=== PATIENT | male | born 1985 | race Caucasian/White ===

== ENCOUNTER 2018-07-02 15:04 | Emergency (ER) | payer MEDICARE, MEDICAID ==
[~2018-07-02] VITALS: Ht 170.2 cm; Wt 62.6 kg
[~2018-07-02 15:04] MED LIST: CARB300C2 PO; CEPH-507 PO; CEPH500C PO; DICL50TA4 PO; GBPN300C PO; HYDR25CA5 PO; LAMO200T14 PO; METH-288; METH10TA3 PO; NF-VYVAN20 PO; PHEN32.4; PRM5C60 TOP; TRAZ150T42 PO
[2018-07-02] MEDS ORDERED: TETANUS,DIPTH,PERTUSS P/F (BOOSTRIX) 0.5 ML VIAL IM STA (15:33)
--- NOTE | 2018-07-02 15:43 | ED Upper Extremity ---
General Chief Complaint: Upper Extremity Stated Complaint: R THUMB SWELLING Nursing Triage Note: pt presents to ed with complaints of r pointer finger swelling/pain/redness x 2-3 days. Pt reports hx of abcesses. Nursing Sepsis Screen: No Definite Risk History of Present Illness Date Seen by Provider: Jul 02, 2018 Time Seen by Provider: 15:30 Initial Comments 32-year-old male presents for swelling and pain to his right thumb. He had a history of multiple abscesses in the past, they've been staph but not MRSA. He denies injuries to his right thumb. He is right-hand dominant. He is unsure of the last time he had a tetanus vaccine. Onset: other (2-3 days) Pain/Injury Location: right thumb Method of Injury: unknown Modifying Factors: Improves With Rest Allergies and Home Medications Allergies Coded Allergies: No Known Drug Allergies (Unverified , 07/28/10) Home Medications Gabapentin 300 Mg Cap, 300 MG PO HS, (Reported) Lamotrigine 200 Mg Tablet, 1 EACH PO HS, (Reported) Mupirocin Calcium 15 Gm Cream..g., 15 GM TP TID Prescribed by: CARIN CHAVEZ on 07/02/18 1602 Sulfamethoxazole/Trimethoprim 1 Each Tablet, 1 EACH PO BID Prescribed by: CARIN CHAVEZ on 07/02/18 1602 Patient Home Medication List Home Medication List Reviewed: Yes Review of Systems Constitutional: no symptoms reported, see HPI Skin: see HPI, lesions (right thumb dorsal aspect at IP joint) All Other Systems Reviewed Negative Unless Noted: Yes Past Geghgjn-Gjgoue-Bpiycq Hx Past Med/Social Hx: Reviewed Nursing Past Med/Soc Hx Patient Social History Alcohol Use: Denies Use Recreational Drug Use: No Smoking Status: Current Everyday Smoker Recent Foreign Travel: No Contact w/Someone Who Travel: No Recent Infectious Disease Expo: No Physical Abuse: No Sexual Abuse: No Mistreated: No Fear: No Seasonal Allergies Seasonal Allergies: No Past Medical History Surgeries: Yes (l hand) Respiratory: No Cardiac: No Neurological: Yes Seizure Disorder Genitourinary: No Gastrointestinal: No Musculoskeletal: No Endocrine: No Cancer: No Psychosocial: No Physical Exam Vital Signs Vital Signs - First Documented 07/02/18 15:11 Temp 97.9 Pulse 83 Resp 20 B/P (MAP) 122/69 (86) Pulse Ox 98 Capillary Refill : Less Than 3 Seconds Height, Weight, BMI Height: 5'7.00" Weight: 138lbs. oz. 62.082652pe; BMI Method:Stated General Appearance: WD/WN, no apparent distress Cardiovascular: normal peripheral pulses, regular rate, rhythm, no murmur Respiratory: chest non-tender, lungs clear, normal breath sounds Hand: no evidence of injury, Right, infection (IP joint, dorsal surface right thumb with small abscess. Min errythema, no active drainage. Trace fluctuance. LOM secondary to pain and swelling. ), limited ROM, soft tissue tenderness, swelling Neurologic/Psychiatric: no motor/sensory deficits, alert, normal mood/affect, oriented x 3 Skin: normal color, warm/dry Procedures/Interventions I&D : Site: Right thumb Blade Size: 11 I & D Procedure: betadine prep Progress Using sterile technique a small puncture was made over the abscess, trace purulent drainage was expressed. Culture obtained. The wound was irrigated with 200 ML's of sterile saline. Bulky sterile dressing applied. Patient tolerated procedure well. Progress/Results/Core Measures Results/Orders My Orders Orders - CARIN CHAVEZ Dipht,Pertuss(Acell),Tet Adult (Boostrix (07/02/18 15:33) Lidocaine 1% Inj 20 Ml (Xylocaine 1% Inj (07/02/18 15:45) Medications Given in ED Current Medications Medications Dose Ordered Sig/Alexander Route Start Time Stop Time Status Last Admin Dose Admin Lidocaine HCl 20 ml ONCE ONCE INJ 07/02/18 15:45 07/02/18 15:46 DC 07/02/18 15:50 20 ML Vital Signs/I&O 07/02/18 07/02/18 15:11 16:06 Temp 97.9 97.9 Pulse 83 83 Resp 20 20 B/P (MAP) 122/69 (86) 122/69 (86) Pulse Ox 98 98 Blood Pressure Mean: 86 Departure Impression Primary Impression: Abscess of right thumb Disposition: 01 HOME, SELF-CARE Condition: Improved Departure-Patient Inst. Decision time for Depature: 15:50 Referrals: NO,LOCAL PHYSICIAN (PCP/Family) Primary Care Physician Patient Instructions: Abscess Drainage, Percutaneous (DC) Add. Discharge Instructions: Keep wound clean and dry to right thumb. Irrigated with peroxide 3 times daily. Apply antibiotic ointment 3 times daily. Keep wound covered with a Band-Aid. Take antibiotic as prescribed. Wear gloves at all times on right hand while at work. Follow-up with your primary care provider if symptoms are not improving or worsen. You may take Tylenol 650 mg alternating with ibuprofen 600 mg every 4 hours for pain or fever. Return to emergency department for fever greater than 101, new problems or concerns. All discharge instructions reviewed with patient and/or family. Voiced understanding. Scripts Mupirocin Calcium (Mupirocin) 15 Gm Cream..g. 15 GM TP TID for 7 Days, #1 TUBE 0 Refills Prov: CARIN CHAVEZ 07/02/18 Sulfamethoxazole/Trimethoprim (Bactrim Ds Tablet) 1 Each Tablet 1 EACH PO BID, #14 TAB 0 Refills Prov: CARIN CHAVEZ 07/02/18 CARIN CHAVEZ Jul 02, 2018 15:43
[2018-07-02] MEDS ORDERED: LIDOCAINE 1% INJ 20 ML 20 ML VIAL INJ ONE (15:45)
[2018-07-02] MEDS ORDERED: SULF1TAB35 PO (16:02)
[2018-07-02] MEDS ORDERED: MUPI15CR11 TP (16:02)
[2018-07-02 16:06] VITALS: BP 122/69
== END 2018-07-02 16:06 | disposition home or self-care (01) ==
LOC: EDUNIT# 15:04 → ER 15:06
DX: L02.511 Cutaneous abscess of right hand (principal); G40.909 Epilepsy, unspecified, not intractable, without status epilepticus; F17.200 Nicotine dependence, unspecified, uncomplicated; Z86.19 Personal history of other infectious and parasitic diseases; Z23 Encounter for immunization
CPT/HCPCS: 87070; 87077; 87186; 87205; 90715

== ENCOUNTER 2019-10-06 17:36 | Emergency (ER) | payer MEDICARE, MEDICAID ==
[~2019-10-06] VITALS: Ht 172.7 cm; Wt 72.6 kg
[~2019-10-06 17:36] MED LIST changes: +MUPI15CR11 TP; -PHEN32.4; +PHEN32.44; +SULF1TAB35 PO
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
--- OUTSIDE RECORDS SUMMARY | 2019-10-06 17:42 | XMS REPORT ---
Author Author [employer]. Organization [facility] Address [address] [address] Care Team Providers Care Dinkey Dispatcher Name Role Phone Romero DEGROOT Unavailable [facility] Unavailable NO, LOCAL PHYSICIAN PCP Unavailable Migration, Doctor Unavailable Unavailable ZENON FINLEY S Unavailable Unavailable Migration, Doctor Unavailable Unavailable Migration, Doctor Unavailable Unavailable Migration, Doctor Unavailable Unavailable FE FINLEYNDA Unavailable FE FINLEYNDA Unavailable MANUELA GELLER Unavailable Unavailable MALIAFEZENON Unavailable FE FINLEYNDA Unavailable RAYMON Larios Unavailable MALIA, ZENON Unavailable Allergies Normalized Allergy Reported Date of Reaction(s) Care Provider Facility Allergy Type classification allergen Allergy Onset DA (14 Unclassified No Known Drug 07-28-2010 - no information LANCE MAGAÑA Not Available sources.) Allergies MD (35394) Medications Medication Ingredient Drug Dose Dates Status Sig Sig Care Class(es) (Normalized) (Original) Provid er no Cephalexin no 10-13-19 Complete no Cephalexin Jose oth information Monohydrate information 12 - d information Mo nohydrate y D (1 source.) (Cephalexin 04-01-20 (Cephalexin) Stebbi ) 500 Mg 13 500 Mg ns (no Capsule, 1 Capsule, 1 phone) Each Oral Each Oral Four Times Daily 10/13/11 Discontinued mupirocin Mupirocin RNA 300 07-02-19 Complete apply 15 g M upirocin Lissy 20 mg/ml Synthetase mg/mL 19 - d topically Calcium Acetylene Operator topical Inhibitor 07-09-19 three times (Mupirocin) Scott cream (1 Antibacteri 19 daily 15 Gm (no source.) al Cream..g. 15 phone) Gm TOPICAL Three Times A Day 7 Days 1 Tube 07/02/18 sulfamethox Sulfamethox Dihydrofola 07-02-19 Complete take 1 Sulfamethoxa Lissy azole 800 azole / te 19 d tablet by zole/Trimeth Ar board attendant mg / Trimethopri Reductase mouth twice oprim Scott trimethopri m Inhibitor daily, then (Bactrim Ds (no m 160 mg Antibacteri take 1 Tablet) 1 phone) oral tablet al, tablet by Each Tablet (1 source.) Sulfonamide mouth 1 Each ORAL Antimicrobi Twice A Day al 14 Tab 07/02/18 Problems Active Problems Problem Normalized Date of Normalized Normalized Provider Fac ility Classification Problem(s) Problem Problem Problem Sta tus Onset/Resoluti Duration on Immunizations Encounter for Episodic Active LISSY SCOTT Not Available and screening immunization (64921) for infectious disease (4 sources.) Other Encounter for Episodic Active LANCE MAGAÑA Not Available aftercare (1 therapeutic , (11172) source.) drug monitoring Epilepsy; Epilepsy, Chronic Active SHANNAN RUFINA , DO Not Leola ilable convulsions (6 unspecified, (64721) sources.) not intractable, without status epilepticus Translations: [ EPILEPSY UNSPEC W/O MENTION INTRACTABLE ] Other Long-term Episodic Active LANCE MAGAÑA Not Avai lable aftercare (4 (current) use , (99219) sources.) of other medications Other Pain in right Episodic Active LISSY SCOTT Not Avai lable connective finger(s) (76471) tissue disease (4 sources.) Other Personal Episodic Active LISSY SCOTT Not Available infections; history of (54912) including other parasitic (4 infectious and sources.) parasitic diseases Open wounds of Puncture wound Episodic Active MANUELA GALVI N Not Available extremities (4 without , DO (46959) sources.) foreign body of right hand, initial encounter Epilepsy; Unspecified Episodic Active LANCE MAGAÑA Not Av ailable convulsions (6 convulsions , (58198) sources.) Translations: [ OTHER CONVULSIONS] Past or Other Problems Problem Normalized Date of Normalized Normalized Provider Fac ility Classification Problem(s) Problem Problem Problem Sta tus Onset/Resoluti Duration on External cause Activity, food no information no information W VINOD SETH Not Available codes: preparation , DO (02881) Unspecified (4 and clean up sources.) Translations: [ OTHER EXTERNAL CAUSE STATUS] External cause Contact with no information no information MU SETH Not Available codes: knife, initial , DO (49252) Cut/solorzano (2 encounter sources.) External cause Kitchen of no information no information MANUELA SETH Not Available codes: Place single-family , DO (45371) of occurrence (private) (2 sources.) house as the place of occurrence of the external cause Procedures The data below is from unstructured sourcesNo known history of procedures.No procedure information available.No procedure i nformation available. No Known procedures No Known procedures No Known procedures No Known procedures No Known procedures No Known procedures No Known procedures No Known procedures No Known procedures No Known procedures No Known procedures No Known procedures Immunizations Normalized Immunization Date Notes Care Provider Facili ty Immunization tetanus toxoid, 07-02-2018 - no information no name Not Av ailable reduced diphtheria 07-02-2018 (99638) toxoid, and acellular pertussis vaccine, adsorbed Results Test Name Value Interpretation Reference Range Date Time Fa cility (Normalized) (Normalized) (Medline Reference) No panel information on 2018-12-02 Albumin 4.7 g/dL (N) 3.4 - 5.4 g/dL [facility] [Mass/Vol] [facility] (31552) Albumin/Globulin 1.8 {ratio} (N) 1 - 2.5 {ratio} Comm [facility] [Mass ratio] [facility] (00156) ALP [Catalytic 79 U/L (N) 44 - 147 U/L [facility] activity/Vol] [facility] (92021) ALT [Catalytic 16 U/L (N) 4 - 40 U/L [facility] activity/Vol] [facility] (16317) AST [Catalytic 17 U/L (N) 10 - 34 U/L [facility] activity/Vol] [facility] (23046) Basophils (Bld) 0.021 10*3/uL (N) 0 - 0.3 10*3/uL [facility] [#/Vol] [facility] (66937) Basophils/100 0.3 % (N) 0.5 - 1 % [facility] WBC (Bld) [facility] (80145) Bilirubin 0.5 mg/dL (N) 0.1 - 1.2 mg/dL [facility] [Mass/Vol] [facility] (02479) Calcium 9.6 mg/dL (N) 8.5 - 10.2 mg/dL [facility] [Mass/Vol] [facility] (71384) Chloride 105 mmol/L (N) 95 - 106 mmol/L [facility] [Moles/Vol] [facility] (51893) CO2 [Moles/Vol] 28 mmol/L (N) 23 - 29 mmol/L [facility] (46856) Creatinine 0.84 mg/dL (N) [facility] [Mass/Vol] [facility] (00380) Eosinophils 0.091 10*3/uL (N) 0.05 - 0.5 [facility] (Bld) [#/Vol] 10*3/uL [facility] (36707) Eosinophils/100 1.3 % (N) 1 - 4 % [facility] WBC (Bld) [facility] (57461) Erythrocyte 13.6 % (N) 11.6 - 14.6 % [facility] distribution [facility] (RBC) [facility] [Ratio] (90017) GFR/1.73 sq M 135 (N) 90 - 120 [facility] predicted among mL/min/{1.73_m2} mL/min/{1.73_m2} [facility] MDRD [facility] (S/P/Bld) [Vol (70552) rate/Area] GFR/1.73 sq 117 (N) 90 - 120 [facility] th M.predicted MDRD mL/min/{1.73_m2} mL/min/{1.73_m2} [facility] (S/P/Bld) [Vol [facility] rate/Area] (88741) Globulin (S) 2.6 g/dL (N) 2 - 3.5 g/dL [facility] ealth [Mass/Vol] [facility] (02453) Glucose 91 mg/dL (N) 60 - 125 mg/dL [facility] [Mass/Vol] [facility] (17241) HAV IgM IA Ql NON-REACTIVE (N) [facility] (62765) HBV core IgM IA NON-REACTIVE (N) [facility] (32507) HBV surface Ag NON-REACTIVE (N) [facility] IA Ql [facility] (53565) HCV Ab IA Ql NON-REACTIVE (N) [facility] (46838) HCV Ab 0.02 {ratio} (N) 0 - 3 {ratio} [facility] Signal/Cutoff IA [facility] [Rel units/Vol] [facility] (90456) Hematocrit (Bld) 50.1 % (H) 36.1 - 50.3 % [facility] [[facility]] [facility] (35723) Hemoglobin (Bld) 16.2 g/dL (N) 12.1 - 17.2 g/dL [facility] [Mass/Vol] [facility] (41183) Lot [id number] (no code) [facility] (89480) Lymphocytes 1.974 10*3/uL (N) 0.9 - 2.9 [facility] (Bld) [#/Vol] 10*3/uL [facility] (68203) Lymphocytes/100 28.2 % (N) 20 - 40 % [facility] WBC (Bld) [facility] (26427) MCH (RBC) 30.0 pg (N) 27 - 31 pg [facility] [Entitic mass] [facility] (09670) MCHC (RBC) 32.3 g/dL (N) 32 - 36 g/dL [facility] [Mass/Vol] [facility] (39965) MCV (RBC) 92.8 fL (N) 80 - 100 fL [facility] [Entitic vol] [facility] (92009) Monocytes (Bld) 0.728 10*3/uL (N) 0.3 - 0.9 [facility] Health [#/Vol] 10*3/uL [facility] (20632) Monocytes/100 10.4 % (N) 2 - 8 % [facility] WBC (Bld) [facility] (36047) Neutrophils 4.186 10*3/uL (N) 1.7 - 7 10*3/uL [facility] (Bld) [#/Vol] [facility] (74236) Neutrophils/100 59.8 % (N) 40 - 60 % [facility] WBC (Bld) [facility] (90012) Platelet mean 10.7 fL (N) 7.2 - 11.7 fL [facility] volume (Bld) [facility] [Entitic vol] [facility] (64751) Platelets (Bld) 240 10*3/uL (N) 150 - 450 [facility] [#/Vol] 10*3/uL [facility] (81153) Potassium 4.3 mmol/L (N) 3.7 - 5.2 mmol/L [facility] [Moles/Vol] [facility] (50724) Protein 7.3 g/dL (N) 6.4 - 8.3 g/dL [facility] [Mass/Vol] [facility] (05892) RBC (Bld) 5.40 10*6/uL (N) 4.2 - 6.1 [facility] [#/Vol] 10*6/uL [facility] (09492) Result 07/11/2019~neg (no code) [facility] (01075) Sodium 140 mmol/L (N) 135 - 145 mmol/L [facility] [Moles/Vol] [facility] (04791) Urea nitrogen 11 mg/dL (N) 7 - 20 mg/dL [facility] [Mass/Vol] [facility] (97573) Urea NOT APPLICABLE (no code) [facility] nitrogen/Creatin [facility] [Mass ratio] [facility] (12535) WBC (Bld) 7.0 10*3/uL (N) 3.5 - 10.5 [facility] [#/Vol] 10*3/uL [facility] (03762) No panel information on 2018-11-27 6-Monoacetylmorp no information (no code) Community a lt hunter (6-JUAN DAVID) Ql [facility] (U) [facility] (01069) Amphetamine (U) no information (no code) [facility] [Mass/Vol] [facility] (43654) Amphetamines Ql no information (no code) [facility] (U) [facility] (60632) Benzodiazepines no information (no code) [facility] Ql (U) [facility] (20417) Benzoylecgonine no information (no code) [facility] Ql (U) [facility] (72892) Buprenorphine Ql no information (no code) [facility] (U) [facility] (43142) COMMENT no information (no code) [facility] (77826) Creatinine (U) 114.5 mg/dL (no code) [facility] [Mass/Vol] [facility] (06694) Ethanol Ql (U) no information (no code) [facility] (49250) medMATCH 6 CONSISTENT (no code) [facility] Acetylmorphine [facility] (06816) medMATCH Alcohol CONSISTENT (no code) [facility] Metab [facility] (17238) medMATCH CONSISTENT (no code) [facility] Amphetamine [facility] (15987) medMATCH CONSISTENT (no code) [facility] Amphetamines [facility] (95291) medMATCH CONSISTENT (no code) [facility] Benzodiazepines [facility] (21605) medMATCH CONSISTENT (no code) [facility] Buprenorphine [facility] (82444) medMATCH Cocaine CONSISTENT (no code) [facility] Metab [facility] (92264) medMATCH CONSISTENT (no code) [facility] Marijuana Metab [facility] (71182) medMATCH MDMA CONSISTENT (no code) [facility] (71072) medMATCH CONSISTENT (no code) [facility] Methamphetamine [facility] (56025) medMATCH Opiates CONSISTENT (no code) [facility] (02252[facility] medMATCH CONSISTENT (no code) [facility] Oxycodone [facility] (74576) Methamphetamine no information (no code) [facility] (U) [Mass/Vol] [facility] (83289) Methylenedioxyme no information (no code) [facility] thamphetamine [facility] ([facility] (40037) Opiates Ql (U) no information (no code) [facility] (71643) Oxidants Ql (U) no information (no code) [facility] (08377) Oxycodone Ql (U) no information (no code) [facility] (78844) pH (U) 7.11 [pH] (no code) 4.6 - 8 [pH] [facility] (10508) Tetrahydrocannab no information (no code) [facility] inol Ql (U) [facility] (14183) No panel information on 2018-11-12 6-Monoacetylmorp no information (no code) [facility] hunter (6-JUAN DAVID) [facility] (U) [facility] (26296) Amphetamine (U) no information (no code) [facility] [Mass/Vol] [facility] (83303) Amphetamines Ql no information (no code) [facility] (U) [facility] (72389) Benzodiazepines no information (no code) [facility] Ql (U) [facility] (36816) Benzoylecgonine no information (no code) [facility] Ql (U) [facility] (34425) Buprenorphine Ql no information (no code) [facility] (U) [facility] (67807) COMMENT no information (no code) [facility] (99010) COMMENT no information (no code) [facility] (25947) Creatinine (U) 227.4 mg/dL (no code) [facility] [Mass/Vol] [facility] (03508) Ethanol Ql (U) no information (no code) [facility] (31313) medMATCH 6 CONSISTENT (no code) [facility] Acetylmorphine [facility] (76914) medMATCH Alcohol CONSISTENT (no code) Community a [facility]th Metab [facility] (21322) medMATCH CONSISTENT (no code) [facility] Amphetamine [facility] (17109) medMATCH CONSISTENT (no code) [facility] Amphetamines [facility] (20111) medMATCH CONSISTENT (no code) [facility] Benzodiazepines [facility] (00075) medMATCH CONSISTENT (no code) [facility] Buprenorphine [facility] (23915) medMATCH Cocaine CONSISTENT (no code) [facility] Metab [facility] (47333) medMATCH CONSISTENT (no code) [facility] Marijuana Metab [facility] (78814) medMATCH MDMA CONSISTENT (no code) [facility] (00652) medMATCH CONSISTENT (no code) [facility] Methamphetamine [facility] (07766) medMATCH Opiates CONSISTENT (no code) [facility] (48571) medMATCH CONSISTENT (no code) [facility] Oxycodone [facility] (00477) Methamphetamine no information (no code) [facility] (U) [Mass/Vol] [facility] (21625) Methylenedioxyme no information (no code) [facility] thamphetamine Ql [facility] (U) [facility] (60252) Opiates Ql (U) no information (no code) [facility] (78861) Oxidants Ql (U) no information (no code) [facility] (26138) Oxycodone Ql (U) no information (no code) [facility] (54322) pH (U) 5.96 [pH] (no code) 4.6 - 8 [pH] [facility] (25609) Tetrahydrocannab no information (no code) [facility] inol Ql (U) [facility] (57976) No panel information on 2018-10-16 6 Acetylmorphine no information (no code) [facility] (54632) Alcohol no information (no code) [facility] Metabolites [facility] (60592) Amphetamine no information (no code) [facility] (38458) Amphetamines Ql no information (no code) [facility] (U) [facility] (63775) Benzodiazepines no information (no code) [facility] Ql (U) [facility] (85184) Benzoylecgonine no information (no code) [facility] Ql (U) [facility] (80065) Buprenorphine no information (no code) [facility] (18604) COMMENT no information (no code) [facility] (28548) Creatinine (U) 115.7 mg/dL (no code) [facility] [Mass/Vol] [facility] (53832) MDMA no information (no code) [facility] (82561) medMATCH 6 CONSISTENT (no code) [facility] Acetylmorphine [facility] (14847) medMATCH Alcohol CONSISTENT (no code) [facility] Metab [facility] (24798) medMATCH CONSISTENT (no code) [facility] Amphetamine [facility] (08723) medMATCH CONSISTENT (no code) [facility] Amphetamines [facility] (39357) medMATCH CONSISTENT (no code) [facility] Benzodiazepines [facility] (84906) medMATCH CONSISTENT (no code) [facility] Buprenorphine [facility] (05965) medMATCH Cocaine CONSISTENT (no code) [facility] Metab [facility] (07152) medMATCH CONSISTENT (no code) [facility] Marijuana Metab [facility] (40086) medMATCH MDMA CONSISTENT (no code) [facility] (30801) medMATCH CONSISTENT (no code) [facility] Methamphetamine [facility] (13540) medMATCH Opiates CONSISTENT (no code) [facility] (02032) medMATCH CONSISTENT (no code) [facility] Oxycodone [facility] (61003) Methamphetamine no information (no code) [facility] (U) [Mass/Vol] [facility] (87555) Opiates Ql (U) no information (no code) [facility] (41988) Oxidants Ql (U) no information (no code) [facility] (40969) Oxycodone Ql (U) no information (no code) [facility] (87495) pH (U) 6.93 [pH] (no code) 4.6 - 8 [pH] [facility] (71735) Tetrahydrocannab no information (no code) [facility] inol Ql (U) [facility] (50809) Vital Signs The data below is from unstructured sources Vital Response Date/Time Temperature (Fahrenheit) 98.0 degree s F (97.6 - 99.5) 05/19/2015 2:06am Temperature (Calculated Celsius) 36. 08414 degrees C (36.4 - 37.5) 05/19/2015 2:06am Pulse Rate (adult) 83 bpm (60 - 90) 05/19/2015 2:06am Respiratory Rate 20 bpm (12 - 24) 05/19/2015 2:06am O2 Sat by Pulse Oximetry 96 % (88 - 100) 05/19/2015 2:06am Blood Pressure 127/76 mm Hg 05/19/2015 2:06am Blood Pressure Mean 93 mm Hg 05/19/2015 2:06am Pain Pain Intensity 6 2014 2:06am Height (Feet) 5 feet 02/2015 2:06am Height (Inches) 7 inches 05/19/2015 2:06am Height (Calculated Centimeters) 170. 766800 cm 05/19/2015 2:06am Weight (Pounds) 142 pounds 05/19/2015 2:06am Weight (Calculated Kilograms) 64.410 117 kilograms 05/19/2015 2:06am Calculated BMI 22.24 02/2015 2:06am Vital Response Date/Time Temperature (Fahrenheit) 97.9 degree s F (97.6 - 99.5) 07/02/2018 4:06pm Temperature (Calculated Celsius) 36. 97609 degrees C (36.4 - 37.5) 07/02/2018 4:06pm Temperature Source Tympanic 07/02/2018 4:06pm Pulse Rate (adult) 83 bpm (60 - 90) 07/02/2018 4:06pm Respiratory Rate 20 bpm (12 - 24) 07/02/2018 4:06pm O2 Sat by Pulse Oximetry 98 % (88 - 100) 07/02/2018 4:06pm Blood Pressure 122/69 mm Hg 07/02/2018 4:06pm Blood Pressure Mean 86 mm Hg (65 - 110) 07/02/2018 4:06pm Pain Numeric Pain Scale 7 4:06pm Height (Feet) 5 feet 3:11pm Height (Inches) 7.00 inches 07/02/2018 3:11pm Height (Calculated Centimeters) 170. 816635 cm 07/02/2018 3:11pm Height Method Stated 3:11pm Weight (Pounds) 138 pounds 07/02/2018 3:11pm Weight (Calculated Grams) 56444.75 gm 07/02/2018 3:11pm Weight (Calculated Kilograms) 62.595 748 kilograms 07/02/2018 3:11pm Weight Method Stated 3:11pm Capillary Refill Capillary Refill Less Than 3 Seconds 07/02/2018 3:11pm Height 5 ft 7 in 019 3:11pm Weight 138 lb 07/02/2018 3:11pm Body Mass Index 21.6 kg/m^2 07/02/2018 3:11pm Interventions No Information Plan of Treatment The data below is from unstructured sources Discharge Date 05/19/15 2:45am Disposition 01 HOME, SELF-CARE Condition at Discharge Stable Instructions/Education Provided Punc ture Wound (ED) Prescriptions See Medication Section Referrals Romero DEGROOT DO - Primary C are Physician Discharge Date 07/02/18 4:06pm Disposition 01 HOME, SELF-CARE Condition at Discharge Improved Instructions/Education Provided Absc ess Drainage, Percutaneous (DC) Prescriptions See Medication Section Referrals NO,LOCAL PHYSICIAN Order Date: Primary Care Physician Additional Instructions/Education Ke ep wound clean and dry to right thumb. Irrigated with peroxide 3 times daily. Apply antibiotic ointment 3 times daily. Keep wound covered with a Band-Aid. Take antibiotic as prescribed. Wear gloves at all times on right hand while at work. Follow-up with your primary care provider if symptoms are not improving or worsen. You may take Tylenol 650 mg alternating with ibuprofen 600 mg every 4 hours for pain or fever. Return to emergency department for fever greater than 101???, new problems or concerns. All discharge instructions reviewed with patient and/or family. Voiced understanding. Goals No Information Social History The data below is from unstructured sources History Response Recorde d Date/Time Alcohol Use Rarely Uses 04/01/13 12:55pm Recreational Drug Use N 04/01/13 12:55pm Functional Status The data below is from unstructured sourcesNo functional status results.No functional status information available.No functional status information available. Mental Status No Information Encounters Encounter Normalized Encounter Encounter Diagnosis Care Provi carla Organization Date Type 07-02-2018 Emergency department no information LISSY marrufo no organization name - patient visit (no phone ) 07-02-2018 11-05-2013 Emergency department no information no name (no vickie ne) no organization name - patient visit (no phone) 11-05-2013 06-03-2019 Patient encounter no information no name (no phone) no organization name procedure (no phone) 05-27-2019 Patient encounter no information no name (no phone) no organization name procedure (no phone) 05-13-2019 Patient encounter no information no name (no phone) no organization name procedure (no phone) 05-06-2019 Patient encounter no information no name (no phone) no organization name procedure (no phone) 04-01-2019 Patient encounter no information no name (no phone) no organization name procedure (no phone) 02-26-2019 Patient encounter no information no name (no phone) no organization name procedure (no phone) 01-30-2019 Patient encounter no information no name (no phone) no organization name procedure (no phone) 01-22-2019 Patient encounter no information no name (no phone) no organization name procedure (no phone) 01-13-2019 Patient encounter no information no name (no phone) no organization name procedure (no phone) 01-01-2019 Patient encounter no information no name (no phone) no organization name procedure (no phone) 12-23-2018 Patient encounter no information no name (no phone) no organization name procedure (no phone) 12-18-2018 Patient encounter no information no name (no phone) no organization name procedure (no phone) 12-10-2018 Patient encounter no information no name (no phone) no organization name procedure (no phone) 12-04-2018 Patient encounter no information no name (no phone) no organization name procedure (no phone) 12-03-2018 Patient encounter no information no name (no phone) no organization name procedure (no phone) 12-02-2018 Patient encounter no information no name (no phone) no organization name procedure (no phone) 12-02-2018 Patient encounter no information no name (no phone) no organization name procedure (no phone) 11-27-2018 Patient encounter no information no name (no phone) no organization name procedure (no phone) 11-26-2018 Patient encounter no information no name (no phone) no organization name procedure (no phone) 11-19-2018 Patient encounter no information no name (no phone) no organization name procedure (no phone) 11-12-2018 Patient encounter no information no name (no phone) no organization name procedure (no phone) 10-31-2018 Patient encounter no information no name (no phone) no organization name procedure (no phone) 10-24-2018 Patient encounter no information no name (no phone) no organization name procedure (no phone) 10-16-2018 Patient encounter no information no name (no phone) no organization name procedure (no phone) 10-09-2018 Patient encounter no information no name (no phone) no organization name procedure (no phone) 10-02-2018 Patient encounter no information no name (no phone) no organization name procedure (no phone) 09-30-2018 Patient encounter no information no name (no phone) no organization name procedure (no phone) 09-26-2018 Patient encounter no information no name (no phone) no organization name procedure (no phone) 07-02-2018 Patient encounter no information no name (no phone) no organization name procedure (no phone) 03-24-2015 Patient encounter no information no name (no phone) no organization name procedure (no phone) 02-06-2014 Patient encounter no information no name (no phone) no organization name procedure (no phone) 10-28-2013 Patient encounter no information no name (no phone) no organization name procedure (no phone) 08-01-2013 Patient encounter no information no name (no phone) no organization name procedure (no phone) 06-27-2013 Patient encounter no information no name (no phone) no organization name procedure (no phone) Patient encounter no information no name (no phone) no organ ization name procedure (no phone) Medical Equipment No Information Payers The data below is from unstructured sources Payer Name Policy Number Subscriber Name Relationship Medicaid [place] [id number] Uriel Dodge Jr 01 Self / Same As Patient s Medicare [id number] Uriel Dodge Jr Self / Same As Patient History general Narrative - Reported Note Type Note Facility History general Narrative - Reported Type Medical Hypokalemia History Medical Contact dermatitis and othe r eczema, due to unspecified cause History Medical Mood disorder History Medical Anxiety disorder, unspecifi ed History Medical Cervicalgia History Medical hx epilepsy in childhood, l ast seizure 2009 (12/18/2018) History Surgical realignment of joint History Hospitaliz surgery ation [facility] ([id number]) Advance Directives Directive Response Recor ded Date/Time Advance Directives No 2:06am Health Care Power of Colorist Dyer No 05/19/15 2:06am Organ Donor No 05/19/15 2:06am Resuscitation Status Full Code 05/19/15 2:06am Directive Response Recor ded Date Advance Directives N 12:55pm Health Care Power of Colorist Dyer N 04/01/13 12:55pm Organ Donor N 04/01/13 1 2:55pm Directive Response Recor ded Date/Time Advance Directives No 3:11pm Health Care Power of Colorist Dyer No 07/02/18 3:11pm Organ Donor No 07/02/18 3:11pm Resuscitation Status Full Code 07/02/18 3:11pm Discharge Instructions No hospital discharge instructions.No hospital discharge instruction information available. Chief Complaint and Reason for Visit Chief Complaint Upper Extremity Reason for Visit Abscess of right th umb Additional Source Comments This clinical document has been generated using [employer] software that has been certified by the Office of the National Coordinator for Health Information Technology (ONC 15.99.04.3023.[id number]) and the National Committee for Tafe Teacher (NCQA, as an eMeasure certified technology). FOR RECORDS PERTAINING TO PATIENTS WHO ARE OR HAVE BEEN ENROLLED IN A CHEMICAL D EPENDENCY/SUBSTANCE ABUSE PROGRAM, SOME INFORMATION MAY BE OMITTED. This clinica l summary was aggregated from multiple sources. Caution should be exercised in using it in the provision of clinical care. This summary normalizes information from multiple sources, and as a consequence, information in this document may ma terially change the coding, format and clinical context of patient data. In jolie tion, data may be omitted in some cases. CLINICAL DECISIONS SHOULD BE BASED ON T HE PRIMARY CLINICAL RECORDS. [employer] provides no warranty or guara ntee of the accuracy or completeness of information in this document.The followi ng information is based on time limited clinical information UNRECOGNIZED CONTENT PROVIDED BELOW FOR UNRECOGNIZED SECTION REASON FOR VISIT [id number] UNRECOGNIZED CONTENT PROVIDED BELOW FOR UNRECOGNIZED SECTION MEDICAL (GENERAL) HISTORY Type Description Date Surgical History realignment of joint Hospitalization History surgery Type Description Date Medical History Hypokalemia Medical History Contact dermatitis a nd other eczema, due to unspecified cause Medical History Mood disorder Medical History Anxiety disorder, un specified Medical History Cervicalgia Medical History hx epilepsy in child [place], last seizure 2009 (12/18/2018) Surgical History realignment of joint Hospitalization History surgery
--- NOTE | 2019-10-06 18:38 | ED Lower Extremity ---
General Chief Complaint: Lower Extremity Stated Complaint: L KNEE PAIN Nursing Triage Note: PT AMBULATE TO ROOM 07 WITH C/O LEFT KNEE PAIN. PT REPORTS PAIN X1 YEAR THAT HAS WORSENED IN THE LAST 2 DAYS. PT STATES HE THINKS IT IS A "FX OR OSTEOARTHRITIS". PT DENIES HX OF TRAUMA TO LEFT KNEE. PT REPORTS TAKING IBUPROFEN AT HOME WITH LIMITED RELIEF. Nursing Sepsis Screen: No Definite Risk Source: patient Exam Limitations: no limitations History of Present Illness Date Seen by Provider: Oct 06, 2019 Time Seen by Provider: 18:25 Initial Comments Here with report of left knee pain that has been worse over the past few days. Has been bothering him for over a year now. Concerned about a bone chip for infection. Has history of multiple abscesses. Denies recent injury. Able to walk okay. No recent seizures. Just completed a course of antibiotic for sebaceous cyst on his head cephalexin 4 times a day 10 days. Denies fever. Denies redness or swelling. Pain is distal lateral left knee. Onset: other (2 days) Severity: mild, moderate Pain/Injury Location: left knee Method of Injury: unknown Modifying Factors: Worse With Movement; Improves With Rest Allergies and Home Medications Allergies Coded Allergies: No Known Drug Allergies (Unverified , 07/28/10) Home Medications Gabapentin 300 Mg Cap, 300 MG PO HS, (Reported) Lamotrigine 200 Mg Tablet, 1 EACH PO HS, (Reported) Mupirocin Calcium 15 Gm Cream..g., 15 GM TP TID Prescribed by: CARIN CHAVEZ on 07/02/18 160 Sulfamethoxazole/Trimethoprim 1 Each Tablet, 1 EACH PO BID Prescribed by: CARIN CHAVEZ on 07/02/18 1602 Patient Home Medication List Home Medication List Reviewed: Yes Review of Systems Constitutional: No chills, No fever Respiratory: no symptoms reported Cardiovascular: no symptoms reported Musculoskeletal: joint pain; No joint swelling Skin: see HPI; No change in color, No lesions Psychiatric/Neurological: No Symptoms Reported Past Lzlvedd-Fkrmyv-Abpfht Hx Past Med/Social Hx: Reviewed Nursing Past Med/Soc Hx Patient Social History Alcohol Use: Rarely Uses Recreational Drug Use: No Smoking Status: Current Everyday Smoker Type Used: Cigarettes 2nd Hand Smoke Exposure: Yes Recent Foreign Travel: No Contact w/Someone Who Travel: No Recent Infectious Disease Expo: No Physical Abuse: No Sexual Abuse: No Mistreated: No Fear: No Seasonal Allergies Seasonal Allergies: No Past Medical History Surgeries: Yes (l hand) Respiratory: No Cardiac: No Neurological: Yes Seizure Disorder Genitourinary: No Gastrointestinal: No Musculoskeletal: No Endocrine: No Cancer: No Psychosocial: No Family Medical History Reviewed Nursing Family Hx Physical Exam Vital Signs Vital Signs - First Documented 10/06/19 17:59 Temp 37.7 Pulse 76 Resp 18 B/P (MAP) 140/83 (102) O2 Delivery Room Air Capillary Refill : Less Than 3 Seconds Height, Weight, BMI Height: 5'7.00" Weight: 138lbs. oz. 62.018101py; 24.00 BMI Method:Stated General Appearance: WD/WN, no apparent distress Cardiovascular: regular rate, rhythm, no murmur Respiratory: lungs clear, normal breath sounds Knees: right knee non-tender; bilateral knee normal range of motion; left knee other (no obvious swelling, redness or dysfunction. Negative drawer and negative laxity medial and lateral.) Neurologic/Psychiatric: alert, oriented x 3 Skin: normal color, warm/dry Progress/Results/Core Measures Results/Orders My Orders Orders - PATRICA ISLAS MD Knee, Left, 3 Views (10/06/19 18:32) Vital Signs/I&O 10/06/19 17:59 Temp 37.7 Pulse 76 Resp 18 B/P (MAP) 140/83 (102) O2 Delivery Room Air Blood Pressure Mean: 102 Progress Progress Note : Progress Note Seen and evaluated. X-ray left knee ordered. No acute findings. I did discuss with the patient regarding his blood pressure because it concerns him. His blood pressure is 140 over 80s or less. He will follow-up with his doctor regarding that. States his blood pressure are normally normal. Discharge home with return precautions. Patient verbalize understanding instructions and agreement with plan. Diagnostic Imaging Diagonstic Imaging: Xray Plain Films/CT/US/NM/MRI: knee Comments No acute findings Departure Impression Primary Impression: Left lateral knee pain Disposition: HOME, SELF-CARE Condition: Stable Departure-Patient Inst. Decision time for Depature: 18:39 Referrals: [facility] (PCP/Family) Primary Care Physician Patient Instructions: Knee Pain (DC) Add. Discharge Instructions: All discharge instructions reviewed with patient and/or family. Voiced understanding. Follow-up with your doctor for recheck and further evaluation and for referral to orthopedics to evaluate your knee. You can have this done at the clinic. You can schedule with the orthopedic nurse practitioner at the clinic for evaluation as well. You may take ibuprofen and/or Tylenol/acetaminophen as needed for pain per package directions if tolerated. You may use ice packs over area of concern 20 minutes per hour to reduce swelling and pain. Return for worse pain, swelling, fever, redness or other concerns as needed. Copy Copies To 1: MICHELLE ROMERO TIMOTHY D MD Oct 06, 2019 18:38
[2019-10-06 18:55] VITALS: BP 131/72
--- NOTE | 2019-10-06 18:55 | Diagnostic Imaging Report ---
CLINICAL INDICATION: Patient with left knee pain. Patient reports pain x1 year that has worsened in the last 2 days. Patient thinks it is a fracture osteoarthritis. Patient denies history of trauma to left knee. EXAM: X-ray of the left knee, 3 views. COMPARISON: None. FINDINGS: There is no acute fracture or dislocation. There is no knee effusion. There is no significant bony abnormality. IMPRESSION: Unremarkable x-ray of the left knee. Dictated by: Dictated on workstation # [id number]
== END 2019-10-06 18:55 | disposition home or self-care (01) ==
LOC: EDUNIT# 17:36 → ER 17:38
DX: M25.562 Pain in left knee (principal); G40.909 Epilepsy, unspecified, not intractable, without status epilepticus; F17.210 Nicotine dependence, cigarettes, uncomplicated
CPT/HCPCS: 73562

== ENCOUNTER 2019-12-20 14:40 | Emergency (ER) | payer MEDICARE, MEDICAID ==
[~2019-12-20] VITALS: Ht 170.2 cm; Wt 73.9 kg
--- OUTSIDE RECORDS SUMMARY | 2019-12-20 14:45 | XMS REPORT ---
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[employer] [facility] [employer] [facility] [employer] Address [address] [address] Care Team Providers Care Frame Assembler Name Role Phone Romero DEGROOT Unavailable [facility] Unavailable NO, LOCAL PHYSICIAN PCP Unavailable Migration, Doctor Unavailable Unavailable JESS FINLEYA S Unavailable Unavailable Migration, Doctor Unavailable Unavailable Migration, Doctor Unavailable Unavailable Migration, Doctor Unavailable Unavailable MALIA, ZENON Unavailable FE FINLEYNDA Unavailable MANUELA GELLER Unavailable Unavailable MALIA, ZENON Unavailable MALIA, ZENON Unavailable RAYMON Larios Unavailable MALIA, ZENON Unavailable MARK PHILLIPS, REENA Quan Unavailable Unavailable JANEL PHILLIPS, PATRICA Kendrick Unavailable Unavailable GÓMZE PHILLIPS, LANCE Weiner Unavailable Unavailable MANUELA SETH DO Unavailable Unavailable SCOTT HAND EXPANSION ENVELOPE MAKER, CARIN L Unavailable Unavailable Unavailable Unavailable Unavailable Unavailable Allergies The data below is from unstructured sources Allergen Type Severity Reaction Last Updated No Known Drug Allergies 07/28/10 No Information Encounters Encounter Date Encounter Type Encounter Diagnosis Care Provider Facility Start: Patient encounter MANUELA Kadeem [facility] 11-25-2019 procedure Center [facility] Start: Patient encounter MANUELA Quan [facility] 11-17-2019 procedure Center [facility] Start: Patient encounter MANUELA Quan [facility] 10-07-2019 procedure Center [facility] Start: Emergency department REENA Blacki 10-06-2019 patient visit [facility] End: 10-06-2019 Start: Patient encounter PATRICA ISLAS MD [facility] [address] 10-06-2019 procedure [facility] Start: Patient encounter MANUELA GELLER [facility] 06-03-2019 procedure [facility] ([id number]) Start: Patient encounter MANUELA GELLER [facility] [place] 05-27-2019 procedure [facility] ([id number]) Start: Patient encounter ZENON FINLEY [facility] 05-13-2019 procedure [facility] ([id number]) Start: Patient encounter ZENON MALIA [facility] 05-06-2019 procedure [facility] ([id number]) Start: Patient encounter ZENON MALIA [facility] [place] 04-01-2019 procedure [facility] ([id number]) Start: Patient encounter ZENON MALIA [facility] [place] 02-26-2019 procedure [facility] ([id number]) Start: Patient encounter ZENON MALIA [facility] [place] 01-30-2019 procedure [facility] ([id number]) Start: Patient encounter ZENON MALIA [facility] [place] 01-22-2019 procedure [facility] ([id number]) Start: Patient encounter ZENON MALIA [facility] [place] 01-13-2019 procedure [facility] ([id number]) Start: Patient encounter ZENON MALIA [facility] [place] 01-01-2019 procedure [facility] ([id number]) Start: Patient encounter ZENON MALIA [facility] 12-23-2018 procedure [facility] ([id number]) Start: Patient encounter ZENON MALIA [facility] 12-18-2018 procedure [facility] ([id number]) Start: Patient encounter ZENON MALIA [facility] [place] 12-10-2018 procedure [facility] ([id number]) Start: Patient encounter ZENON MALIA [facility] [place] 12-04-2018 procedure [facility] ([id number]) Start: Patient encounter ZENON MALIA [facility] 12-03-2018 procedure [facility] (46890) Start: [facility] encounter NA [facility] 12-02-2018 [facility] ([id number]) Start: Patient encounter NA NA [facility] 12-02-2018 procedure [facility] ([id number]) Start: Patient encounter ZENON MALIA [facility] 11-27-2018 procedure [facility] ([id number]) Start: Patient encounter ZENON MALIA [facility] 11-26-2018 procedure [facility] (31525) Start: Patient encounter ZENON MALIA [facility] 11-19-2018 procedure [facility] ([id number]) Start: Patient encounter NA NA [facility] 11-12-2018 procedure [facility] (08986) Start: Patient encounter ZENON MALIA [facility] 10-31-2018 procedure [facility] ([id number]) Start: Patient encounter ZENON MALIA [facility] 10-24-2018 procedure [facility] (11612) Start: Patient encounter ZENON MALIA [facility] 10-16-2018 procedure [facility] ([id number]) Start: Patient encounter ZENON MALIA [facility] [place] 10-09-2018 procedure [facility] (77615) Start: Patient encounter ZENON MALIA [facility]2018 [facility] ([id number]) Start: Patient encounter ZENON MALIA [facility] [place] 09-30-2018 procedure [facility] (10165) [facility]: [facility] (10598) Start: Emergency department CARIN CHAVEZ Not Avai lable ([id number]) 07-02-2018 patient visit End: 07-02-2018 Start: Patient encounter CARIN CHAVEZ Not Availab le ([id number]) 07-02-2018 procedure Start: Emergency department CARIN VALLEJO [facility] [address] 07-02-2018 patient visit [facility] End: 07-02-2018 Start: Emergency department MANUELA SETH DO [facility] 05-18-2015 patient visit [facility] End: 05-18-2015 Start: Patient encounter LANCE MAGAÑA MD Not Avail able ([id number]) 03-24-2015 procedure Start: Patient encounter LANCE MAGAÑA MD [facility] 03-24-2015 procedure [facility] Start: Patient encounter LANCE MAGAÑA MD Not Avail able ([id number]) 02-06-2014 procedure Start: Emergency department SHANNAN ALMARAZ DO Not Avai lable ([id number]) 11-05-2013 patient visit End: 11-05-2013 Start: Patient encounter LANCE MAGAÑA MD Not Avail able ([id number]) 10-28-2013 procedure Start: Patient encounter LANCE MAGAÑA MD Not Avail able ([id number]) 08-01-2013 procedure Start: Patient encounter LANCE MAGAÑA MD Not Avail able ([id number]) 06-27-2013 procedure Patient encounter NA NA Not Available (0000 0) procedure Medical Equipment No Information Goals No Information Immunizations Immunizatio Immunization Notes Care Provider Facility n Date 07-02-2018 tetanus toxoid, NA NA Not Available ([id number]) reduced diphtheria toxoid, and acellular pertussis vaccine, adsorbed Interventions No Information Medications Medication Drug Dates Sig Sig (Original) Class(es) (Normalized) Cephalexin Monohydrate Start: Cephalexin Mon ohydrate (Cephalexin) 500 (Cephalexin) 500 Mg 10-13-2011 Mg Capsule, 1 Eac h Oral Four Times Daily Capsule, 1 Each Oral 10/13/11 Discontinued (1 source) End: 04-01-2013 mupirocin 20 mg/ml RNA Start: apply 15 g Mupiroc in Calcium (Mupirocin) 15 Gm topical cream Synthetase 07-02-2018 topically three Cream..g . 15 Gm TOPICAL Three Times A (1 source) Inhibitor times daily Day 7 Days 1 Tube 07/02/18 Antibacter End: ial 07-09-2018 sulfamethoxazole 800 mg Dihydrofol Start: Sulfam ethoxazole/Trimethoprim (Bactrim / trimethoprim 160 mg ate 07-02-2018 Ds Table t) 1 Each Tablet 1 Each ORAL oral tablet Reductase Twice A Day 14 Tab 07/02/18 (1 source) Inhibitor Antibacter ial, Sulfonamid e Antimicrob ial Payers The data below is from unstructured sources Payer Name Policy Number Subscriber Name Relationship Medicaid [place] [id number] Uriel Dodge Jr Self / Same As Patient Wps Medicare [id number] Uriel Dodge Jr Self / Same As Patient Plan of Treatment The data below is [...] reviewed with patient and/or family. Voiced understanding. Problems Active Problems Problem Problem Date Last Documented Episodic/Chr Provider Classificati Recorded Date on on E Codes: Contact with knife, initial Episodic MANUELA Cut/pierceb encounter DORINDA DO (4 sources) E Codes: Kitchen of single-family (private) Episodic MANUELA Place of house as the place of occurrence of DORINDA DO occurrence the external cause (4 sources) E Codes: Activity, food preparation and Episodic MANUELA Unspecified clean up ; Translations: [OTHER GAL GUS DO (8 sources) EXTERNAL CAUSE STATUS] Epilepsy; Epilepsy, unspecified, not 10-28-2019 Chronic SHANNAN RUFINA DO convulsions intractable, without status (10 sources) epilepticus ; Translations: [Epilepsy, unspecified, without mention of intractable epilepsy] Epilepsy; Unspecified convulsions ; Episodic DE VENDRA convulsions Translations: [Other convulsions] Augustus CORTEZ MD (8 sources) Immunization Encounter for immunization Episodic A MY SCOTT s and HAND EXPANSION ENVELOPE MAKER screening for infectious disease (6 sources) Other Pain in right finger(s) Episodic CARIN SCOTT connective HAND EXPANSION ENVELOPE MAKER tissue disease (6 sources) Other Personal history of other Episodic AM Y SCOTT infections; infectious and parasitic diseases A LICENSED STAFF MFT including parasitic (6 sources) Other Pain in left knee 10-28-2019 Episodic PATRICA non-traumati JANEL lackey joint disorders (4 sources) Unclassified LOCAL NO (2 sources) Past or Other Problems Problem Problem Date Last Documented Episodic/Chr Provider Classificati Recorded Date onic on Other Long-term (current) use of other Episodic LANCE aftercare medications GÓMEZ PHILLIPS (4 sources) Other Encounter for therapeutic drug Episodic LANCE aftercare monitoring GÓMEZ PHILLIPS (1 source) Procedures The data below is from unstructured sourcesNo known history of procedures.No procedure information available.No procedure i nformation available. No Known procedures No Known procedures No Known procedures No Known procedures No Known procedures No Known procedures No Known procedures No Known procedures No Known procedures No Known procedures Results Test Name Value Interpreta Reference Facilit Date tion Range y Time not yet categorized on 2018-12-02 Lot [id number] Invalid Communi Interpreta ty tion Code [facility] ([id number]) Result 07/11/2019~neg Invalid Communi Interpreta ty tion Code [facility] (58512) laboratory on 2018-12-02 Albumin [Mass/Vol] 4.7 g/dL Normal 3.6-5.1 Communi g/dL [facility] (64640) Albumin/Globulin 1.8 {ratio} Normal 1.0-2.5 Communi [Mass ratio] (calc) [facility] (95106) ALP [Catalytic 79 U/L Normal 40-115 U/L Communi activity/Vol] [facility] (32615) ALT [Catalytic 16 U/L Normal 9-46 U/L Communi activity/Vol] [facility] (80671) AST [Catalytic 17 U/L Normal 10-40 U/L Communi activity/Vol] [facility] (42041) Basophils (Bld) 0.021 10*3/uL Normal 0-200 Communi [#/Vol] cells/uL ty [facility] (08552) Basophils/100 WBC 0.3 % Normal % Communi (Bld) ty [facility] (58087) Bilirubin [Mass/Vol] 0.5 mg/dL Normal 0.2-1.2 Commu ni mg/dL ty [facility] (20019) Calcium [Mass/Vol] 9.6 mg/dL Normal 8.6-10.3 Communi mg/dL ty [facility] (02765) Chloride [Moles/Vol] 105 mmol/L Normal 98-110 Commu ni mmol/L ty [facility] (52276) CO2 [Moles/Vol] 28 mmol/L Normal 20-32 Communi mmol/L ty [facility] (17228) Creatinine 0.84 mg/dL Normal 0.60-1.35 Communi [Mass/Vol] mg/dL ty [facility] (85181) Eosinophils (Bld) 0.091 10*3/uL Normal 15-500 Commun i [#/Vol] cells/uL ty [facility] (32139) Eosinophils/100 WBC 1.3 % Normal % Commun i (Bld) ty [facility] (43912) Erythrocyte 13.6 % Normal 11.0-15.0 Communi distribution width % ty (RBC) [Ratio] [facility] (29535) GFR/1.73 sq 135 mL/min/{1.73_m2} Normal > OR = 60 Commu ni M.predicted among mL/min/1.7 ty blacks MDRD 3m2 Health (S/P/Bld) [Vol Center rate/Area] [facility] (48534) GFR/1.73 sq 117 mL/min/{1.73_m2} Normal > OR = 60 Commu ni M.predicted MDRD mL/min/1.7 ty (S/P/Bld) [Vol 3m2 Health rate/Area] [facility] (04271) Globulin (S) 2.6 g/dL Normal 1.9-3.7 Communi [Mass/Vol] g/dL ty (calc) [facility] (92049) Glucose [Mass/Vol] 91 mg/dL Normal 65-99 Communi mg/dL ty [facility] (50219) HAV IgM IA Ql NON-REACTIVE Normal NON-REACTI Communi VE [facility] (57944) HBV core IgM IA Ql NON-REACTIVE Normal NON-REACTI Commun i VE ty [facility] (23287) HBV surface Ag IA Ql NON-REACTIVE Normal NON-REACTI Comm uni VE [facility] (20968) HCV Ab IA Ql NON-REACTIVE Normal NON-REACTI Communi VE [facility] (14398) HCV Ab Signal/Cutoff 0.02 {ratio} Normal <1.00 Comm uni IA [Rel units/Vol] [facility] (63051) Hematocrit (Bld) 50.1 % High 38.5-50.0 Communi [Volume fraction] % [facility] (88071) Hemoglobin (Bld) 16.2 g/dL Normal 13.2-17.1 Communi [Mass/Vol] g/dL [facility] (47345) Lymphocytes (Bld) 1.974 10*3/uL Normal 850-3900 Commun i [#/Vol] cells/uL [facility] (29069) Lymphocytes/100 WBC 28.2 % Normal % Commun i (Bld) [facility] (68583) MCH (RBC) [Entitic 30.0 pg Normal 27.0-33.0 Communi mass] pg [facility] (91728) MCHC (RBC) 32.3 g/dL Normal 32.0-36.0 Communi [Mass/Vol] g/dL [facility] (79839) MCV (RBC) [Entitic 92.8 fL Normal 80.0-100.0 Communi vol] fL [facility] (38979) Monocytes (Bld) 0.728 10*3/uL Normal 200-950 Communi [#/Vol] cells/uL [facility] (07614) Monocytes/100 WBC 10.4 % Normal % Communi (Bld) ty [facility] (79261) Neutrophils (Bld) 4.186 10*3/uL Normal 6979-5135 Commun i [#/Vol] cells/uL ty [facility] (89836) Neutrophils/100 WBC 59.8 % Normal % Commun i (Bld) ty [facility] (32714) Platelet mean volume 10.7 fL Normal 7.5-12.5 Commu ni (Bld) [Entitic vol] fL ty [facility] (01950) Platelets (Bld) 240 10*3/uL Normal 140-400 Communi [#/Vol] Thousand/u ty L [facility] (45741) Potassium 4.3 mmol/L Normal 3.5-5.3 Communi [Moles/Vol] mmol/L ty [facility] (10712) Protein [Mass/Vol] 7.3 g/dL Normal 6.1-8.1 Communi g/dL ty [facility] (95759) RBC (Bld) [#/Vol] 5.40 10*6/uL Normal 4.20-5.80 Communi Million/uL ty [facility] (58249) Sodium [Moles/Vol] 140 mmol/L Normal 135-146 Communi mmol/L ty [facility] (94337) Urea nitrogen 11 mg/dL Normal 7-25 mg/dL Communi [Mass/Vol] ty [facility] (20506) Urea NOT APPLICABLE Invalid 6-22 Communi nitrogen/Creatinine Interpreta (calc) ty [Mass ratio] tion Code [facility] (68550) WBC (Bld) [#/Vol] 7.0 10*3/uL Normal 3.8-10.8 Communi Thousand/u ty L [facility] (12320) not yet categorized on 2018-11-27 COMMENT Communi ty [facility] (89812) medMATCH 6 CONSISTENT Invalid Communi Acetylmorphine Interpreta ty tion Code [facility] (09628) medMATCH Alcohol CONSISTENT Invalid Communi Metab Interpreta ty tion Code [facility] (75140) medMATCH Amphetamine CONSISTENT Invalid Communi Interpreta ty tion Code [facility] (48171) medMATCH CONSISTENT Invalid Communi Amphetamines Interpreta ty tion Code [facility] (72266) medMATCH CONSISTENT Invalid Communi Benzodiazepines Interpreta ty tion Code [facility] (03253) medMATCH CONSISTENT Invalid Communi Buprenorphine Interpreta ty tion Code [facility] (76154) medMATCH Cocaine CONSISTENT Invalid Communi Metab Interpreta ty tion Code [facility] (07186) medMATCH Marijuana CONSISTENT Invalid Communi Metab Interpreta ty tion [facility] (39120) medMATCH MDMA CONSISTENT Invalid Communi Interpreta ty tion [facility] (44087) medMATCH CONSISTENT Invalid Communi Methamphetamine Interpreta ty tion [facility] (79174) medMATCH Opiates CONSISTENT Invalid Communi Interpreta ty tion [facility] (43576) medMATCH Oxycodone CONSISTENT Invalid Communi Interpreta ty tion [facility] (95571) laboratory on 2018-11-27 6-Monoacetylmorphine Negative Invalid <10 ng/mL Commu ni (6-JUAN DAVID) Ql (U) Interpreta ty tion Code [facility] (02978) Amphetamine (U) Negative Invalid <250 ng/mL Communi [Mass/Vol] Interpreta ty tion [facility] (73876) Amphetamines Ql (U) Negative Invalid <500 ng/mL Commun i Interpreta ty tion [facility] (76665) Benzodiazepines Ql Negative Invalid <100 ng/mL Communi (U) Interpreta ty tion [facility] (64910) Benzoylecgonine Ql Negative Invalid <150 ng/mL Communi (U) Interpreta ty tion [facility] (24360) Buprenorphine Ql (U) Negative Invalid <5 ng/mL Commu ni Interpreta ty tion Code [facility] (17645) Creatinine (U) 114.5 mg/dL Invalid > or = Communi [Mass/Vol] Interpreta 20.0 mg/dL ty tion Code [facility] (89869) Ethanol Ql (U) Negative Invalid <500 ng/mL Communi Interpreta ty tion Code [facility] (68958) Methamphetamine (U) Negative Invalid <250 ng/mL Commun i [Mass/Vol] Interpreta ty tion Code [facility] (78230) Methylenedioxymetham Negative Invalid <500 ng/mL Commu ni phetamine Ql (U) Interpreta ty tion Code [facility] (07574) Opiates Ql (U) Negative Invalid <100 ng/mL Communi Interpreta ty tion Code [facility] (02710) Oxidants Ql (U) Negative Invalid <200 Communi Interpreta mcg/mL ty tion [facility] (61535) oxyCODONE Ql (U) Negative Invalid <100 ng/mL Communi Interpreta ty tion Code [facility] (38651) pH (U) 7.11 [pH] Invalid 4.5 - 9.0 Communi Interpreta ty tion Code [facility] (42520) Tetrahydrocannabinol Negative Invalid <20 ng/mL Commu ni Ql (U) Interpreta ty tion Code [facility] (25329) not yet categorized on 2018-11-12 COMMENT Invalid Communi Interpreta ty tion Code [facility] (24120) COMMENT Communi ty [facility] (77128) medMATCH 6 CONSISTENT Invalid Communi Acetylmorphine Interpreta ty tion [facility] (43517) medMATCH Alcohol CONSISTENT Invalid Communi Metab Interpreta ty tion Code [facility] (10879) medMATCH Amphetamine CONSISTENT Invalid Communi Interpreta ty tion Code [facility] (35176) medMATCH CONSISTENT Invalid Communi Amphetamines Interpreta ty tion Code [facility] (17616) medMATCH CONSISTENT Invalid Communi Benzodiazepines Interpreta ty tion [facility] (73071) medMATCH CONSISTENT Invalid Communi Buprenorphine Interpreta ty tion [facility] (94481) medMATCH Cocaine CONSISTENT Invalid Communi Metab Interpreta ty tion [facility] (19998) medMATCH Marijuana CONSISTENT Invalid Communi Metab Interpreta ty tion [facility] (15001) medMATCH MDMA CONSISTENT Invalid Communi Interpreta ty tion [facility] (35792) medMATCH CONSISTENT Invalid Communi Methamphetamine Interpreta ty tion [facility] (30041) medMATCH Opiates CONSISTENT Invalid Communi Interpreta ty tion [facility] (94570) medMATCH Oxycodone CONSISTENT Invalid Communi Interpreta ty tion [facility] (83328) laboratory on 2018-11-12 6-Monoacetylmorphine Negative Invalid <10 ng/mL Commu ni (6-JUAN DAVID) Ql (U) Interpreta ty tion [facility] (04204) Amphetamine (U) Negative Invalid <250 ng/mL Communi [Mass/Vol] Interpreta ty tion [facility] (10118) Amphetamines Ql (U) Negative Invalid <500 ng/mL Commun i Interpreta ty tion [facility] (16743) Benzodiazepines Ql Negative Invalid <100 ng/mL Communi (U) Interpreta ty tion [facility] (86965) Benzoylecgonine Ql Negative Invalid <150 ng/mL Communi (U) Interpreta ty tion [facility] (19960) Buprenorphine Ql (U) Negative Invalid <5 ng/mL Commu ni Interpreta ty tion [facility] (28958) Creatinine (U) 227.4 mg/dL Invalid > or = Communi [Mass/Vol] Interpreta 20.0 mg/dL ty tion [facility] (38656) Ethanol Ql (U) Negative Invalid <500 ng/mL Communi Interpreta ty tion Code [facility] (39725) Methamphetamine (U) Negative Invalid <250 ng/mL Commun i [Mass/Vol] Interpreta ty tion [facility] (94323) Methylenedioxymetham Negative Invalid <500 ng/mL Commu ni phetamine Ql (U) Interpreta ty tion Code [facility] (80400) Opiates Ql (U) Negative Invalid <100 ng/mL Communi Interpreta ty tion Code [facility] (19764) Oxidants Ql (U) Negative Invalid <200 Communi Interpreta mcg/mL ty tion [facility] (54716) oxyCODONE Ql (U) Negative Invalid <100 ng/mL Communi Interpreta ty tion [facility] (80589) pH (U) 5.96 [pH] Invalid 4.5 - 9.0 Communi Interpreta ty tion [facility] (39242) Tetrahydrocannabinol Negative Invalid <20 ng/mL Commu ni Ql (U) Interpreta ty tion [facility] (72600) not yet categorized on 2018-10-16 COMMENT Communi ty [facility] (01550) medMATCH 6 CONSISTENT Invalid Communi Acetylmorphine Interpreta ty tion [facility] (71948) medMATCH Alcohol CONSISTENT Invalid Communi Metab Interpreta ty tion [facility] (76345) medMATCH Amphetamine CONSISTENT Invalid Communi Interpreta ty tion Code [facility] (39113) medMATCH CONSISTENT Invalid Communi Amphetamines Interpreta ty tion [facility] (00455) medMATCH CONSISTENT Invalid Communi Benzodiazepines Interpreta ty tion [facility] (57056) medMATCH CONSISTENT Invalid Communi Buprenorphine Interpreta ty tion [facility] (88904) medMATCH Cocaine CONSISTENT Invalid Communi Metab Interpreta ty tion [facility] (91677) medMATCH Marijuana CONSISTENT Invalid Communi Metab Interpreta ty tion Code [facility] (49822) medMATCH MDMA CONSISTENT Invalid Communi Interpreta ty tion [facility] (94936) medMATCH CONSISTENT Invalid Communi Methamphetamine Interpreta ty tion [facility] (10910) medMATCH Opiates CONSISTENT Invalid Communi Interpreta ty tion Code [facility] (41196) medMATCH Oxycodone CONSISTENT Invalid Communi Interpreta ty tion [facility] (97302) laboratory on 2018-10-16 6-Monoacetylmorphine Negative Invalid <10 ng/mL Commu ni (6-JUAN DAVID) Ql (U) Interpreta ty tion [facility] (40760) Amphetamine (U) Negative Invalid <250 ng/mL Communi [Mass/Vol] Interpreta ty tion [facility] (06288) Amphetamines Ql (U) Negative Invalid <500 ng/mL Commun i Interpreta ty tion [facility] (94445) Benzodiazepines Ql Negative Invalid <100 ng/mL Communi (U) Interpreta ty tion [facility] (28406) Benzoylecgonine Ql Negative Invalid <150 ng/mL Communi (U) Interpreta ty tion [facility] (81143) Buprenorphine Ql (U) Negative Invalid <5 ng/mL Commu ni Interpreta ty tion [facility] (92825) Creatinine (U) 115.7 mg/dL Invalid > or = Communi [Mass/Vol] Interpreta 20.0 mg/dL ty tion [facility] (56536) Ethanol Ql (U) Negative Invalid <500 ng/mL Communi Interpreta ty tion [facility] (61504) Methamphetamine (U) Negative Invalid <250 ng/mL Commun i [Mass/Vol] Interpreta ty tion [facility] (95349) Methylenedioxymetham Negative Invalid <500 ng/mL Commu ni phetamine Ql (U) Interpreta ty tion Code [facility] (08697) Opiates Ql (U) Negative Invalid <100 ng/mL Communi Interpreta ty tion Code [facility] (90349) Oxidants Ql (U) Negative Invalid <200 Communi Interpreta mcg/mL ty tion Code [facility] (05317) oxyCODONE Ql (U) Negative Invalid <100 ng/mL Communi Interpreta ty tion Code [facility] (55194) pH (U) 6.93 [pH] Invalid 4.5 - 9.0 Communi Interpreta ty tion Code [facility] (57891) Tetrahydrocannabinol Negative Invalid <20 ng/mL Commu ni Ql (U) Interpreta ty tion Code [facility] (51489) Social History The data below is from unstructured sources History Response Recorde d Date/Time Alcohol Use Rarely Uses 04/01/13 12:55pm Recreational Drug Use N 04/01/13 12:55pm Vital Signs The data below is from unstructured sources Vital Response Date/Time Temperature (Fahrenheit) 98.0 degree s F (97.6 - 99.5) 05/19/2015 2:06am Temperature (Calculated Celsius) 36. 83067 degrees C (36.4 - 37.5) 05/19/2015 2:06am [...] inches 05/19/2015 2:06am Height (Calculated Centimeters) 170. 740512 cm 05/19/2015 2:06am Weight (Pounds) 142 pounds 05/19/2015 2:06am Weight (Calculated Kilograms) 64.410 117 kilograms 05/19/2015 2:06am Calculated BMI 22.24 02/2015 2:06am Vital Response Date/Time Temperature (Fahrenheit) 97.9 degree s F (97.6 - 99.5) 07/02/2018 4:06pm Temperature (Calculated Celsius) 36. 29057 degrees C (36.4 - 37.5) 07/02/2018 4:06pm [...] inches 07/02/2018 3:11pm Height (Calculated Centimeters) 170. 815459 cm 07/02/2018 3:11pm Height Method Stated 3:11pm Weight (Pounds) 138 pounds 07/02/2018 3:11pm Weight (Calculated Grams) 47576.75 gm 07/02/2018 3:11pm Weight (Calculated Kilograms) 62.595 748 kilograms 07/02/2018 3:11pm Weight Method Stated 3:11pm Capillary Refill Capillary Refill Less Than 3 Seconds 07/02/2018 3:11pm Height 5 ft 7 in 019 3:11pm Weight 138 lb 07/02/2018 3:11pm Body Mass Index 21.6 kg/m^2 07/02/2018 3:11pm Functional Status The data below is from unstructured sourcesNo functional status results.No functional status information available.No functional status information available. Mental Status No Information Advance Directives Directive Response Recor ded Date/Time Advance Directives No 2:06am Health Care Power of Community Outreach Advocate No 05/19/15 2:06am Organ Donor No 05/19/15 2:06am Resuscitation Status Full Code 05/19/15 2:06am Directive Response Recor ded Date Advance Directives N 12:55pm Health Care Power of Community Outreach Advocate N 04/01/13 12:55pm Organ Donor N 04/01/13 1 2:55pm Directive Response Recor ded Date/Time Advance Directives No 3:11pm Health Care Power of Community Outreach Advocate No 07/02/18 3:11pm Organ Donor No 07/02/18 3:11pm Resuscitation Status Full Code 07/02/18 3:11pm Discharge Instructions No hospital discharge instructions.No hospital discharge instruction information available. Chief Complaint and Reason for Visit Chief Complaint Upper Extremity Reason for Visit Abscess of right th umb Additional Source Comments This clinical document has been generated using [employer] software that has been certified by the Office of the National Coordinator for Health Information Technology (ONC 15.99.04.3023.Diam.31.00.0.708114) and the National Committee for Banquet Line Cook (NCQA, as an eMeasure certified technology). FOR [...] BASED ON T HE PRIMARY CLINICAL RECORDS. [employer] provides no warranty or guara ntee of the accuracy or completeness of information in this document.The followi ng information is based on time limited clinical information UNRECOGNIZED CONTENT PROVIDED BELOW FOR UNRECOGNIZED SECTION REASON FOR VISIT [id number]
--- OUTSIDE RECORDS SUMMARY | 2019-12-20 14:45 | XMS REPORT | Continuity of Care Document ---
Author Organization Unknown Address Unknown Phone Unavailable Allergies Active Description Code Type Severity Reaction Onset Reported/Identified Relationship to Patient Clinical Status Yes No Known Drug Allergies [id number] Drug Allergy Unknown N/A 07/28/2010 Yes Menthol [...] Ot F17.200 NICOTINE DEPENDENCE, UNSPECIFIED, UNCOMP 07/02/2018 CARIN CHAVEZ Ot G40.909 EPILEPSY, UNSP, NOT INTRACTABLE, [...] MD Ot V58.69 OTH MED,LT,CURRENT USE 07/02/2018 LANEC MAGAÑA MD Ot R56 .9 UNSPECIFIED CONVULSIONS 07/04/2018 SCOTTCARIN CrespoP Ot F17.200 NICOTINE DEPENDENCE, UNSPECIFIED, UNCOMP 07/04/2018 SCOTTCARIN CrespoP Ot G40.909 EPILEPSY, UNSP, NOT INTRACTABLE, WITHOUT 07/04/2018 SCOTTCARIN CrespoP Ot L02.511 CUTANEOUS ABSCESS OF RIGHT HAND 07/04/2018 SCOTTCARIN CrespoP Ot M79.644 PAIN IN RIGHT FINGER(S) 07/04/2018 SCOTTCARIN Crespo IS ANALYST Ot Z23 ENCOUNTER FOR IMMUNIZATION 07/04/2018 SCOTTCARIN CrespoP Ot Z86.19 PERSONAL HISTORY OF OTHER INFECTIOUS AND 07/04/2018 LANCE MAGAÑA MD Ot R56 .9 UNSPECIFIED CONVULSIONS 10/06/2019 PATRICA ISLAS MD Ot F17.210 NICOTINE DEPENDENCE, CIGARETTES, UNCOMPL 10/06/2019 PATRICA ISLAS MD Ot G40.909 EPILEPSY, UNSP, NOT INTRACTABLE, WITHOUT 10/06/2019 PATRICA ISLAS MD Ot M25.562 PAIN IN LEFT KNEE 10/06/2019 LANCE MAGAÑA MD Ot R56 .9 UNSPECIFIED CONVULSIONS 10/09/2019 PATRICA ISLAS MD Ot F17.210 NICOTINE DEPENDENCE, CIGARETTES, UNCOMPL 10/09/2019 PATRICA ISLAS MD Ot G40.909 EPILEPSY, UNSP, NOT INTRACTABLE, WITHOUT 10/09/2019 PATRICA ISLAS MD Ot M25.562 PAIN IN LEFT KNEE Procedures There is no data. Results Test [...] TEXT ENTRY 2 POSITIVE MIXED BACTERIAL RYAN NRG RML Sensitivity Panel - 07/02/18 16:00 Oxacillin [...] Status Pt. Type Provider Facility Loc./Unit Complaint [id number] 05/07/2013 14:47:00 05/07/2013 23:59: 59 CLS Outpatient ZENON FINLEY APRN [id number] 04/04/2013 09:31:00 04/04/2013 23:59: 59 CLS Outpatient MIHCELLE ROMERO DO [id number] 09/27/2011 15:43:00 09/27/2011 23:59: 59 CLS Outpatient ZENON FINLEY APRN [id number] 09/27/2011 15:43:00 09/27/2011 23:59:5 9 CLS Outpatient [id number] 10/06/2019 17:38:00 020 18:55:00 DIS Emergency PATRICA ISLAS MD [facility] ER L KNEE PAIN [id number] 02/24/2019 11:22:00 019 23:59:59 CLS PreadADAMA Leonard APRN [facility] RAD LUNG SCREENING [id number] 07/02/2018 15:06:00 019 16:06:00 DIS Emergency CARIN CHAVEZ [facility] ER R THUMB SWELLING [id number] 05/19/2015 01:57:00 02:45:00 DIS Emergency DORINDA DODD MANUELA Arolod [facility] ER RT WRIST PAIN(CUT 2 HRS AGO),RT FOOT PAIN(FALL 2 W [id number] 03/24/2015 08:50:00 23:59:59 CLS Outpatient LANCE MAGAÑA MD [facility] LAB EPILEPSY [id number] 02/06/2014 09:31:00 23:59:59 CLS Outpatient LANCE MAGAÑA MD [facility] LAB SEIZURES [id number] 11/05/2013 12:21:00 14:20:00 DIS Emergency SHANNAN ALMARAZ DO Vi a [facility] ER SEIZURES [id number] 10/28/2013 11:33:00 23:59:59 CLS Outpatient LANCE MAGAÑA MD [facility] LAB SEIZURE ON LAMICTAL [id number] 08/01/2013 10:56:00 23:59:59 CLS Outpatient LANCE MAGAÑA MD [facility] LAB SEIZURE [id number] 06/27/2013 11:30:00 23:59:59 CLS Outpatient LANCE MAGAÑA MD [facility] LAB SEIZURE [id number] 05/02/2013 08:47:00 23:59:59 CLS Outpatient [id number] 04/01/2013 12:52:00 14:49:00 DIS Emergency
[2019-12-20] MEDS ORDERED: LACTATED RINGERS 1,000 ML IV ONE (14:51)
[2019-12-20 15:03] LABS: BILIRUBIN,URINE NEGATIVE (NEGATIVE); CLARITY,URINE CLEAR; COLOR,URINE YELLOW; GLUCOSE, URINE (UA) NEGATIVE (NEGATIVE); KETONES,URINE NEGATIVE (NEGATIVE); LEUKOCYTE ESTERASE ,URINE NEGATIVE (NEGATIVE); NITRITE,URINE NEGATIVE (NEGATIVE); PH,URINE 5.5 (5-9); PROTEIN,URINE NEGATIVE (NEGATIVE)
[2019-12-20 15:12] LABS: BACTERIA,URINE NEGATIVE /HPF; RBC,URINE RARE /HPF
--- NOTE | 2019-12-20 15:12 | ED Abdominal Pain ---
General Chief Complaint: Abdominal/GI Problems Stated Complaint: STOMACH PAIN Source of Information: Patient History of Present Illness Date Seen by Provider: Dec 20, 2019 Time Seen by Provider: 14:53 Initial Comments PT ARRIVES VIA POV FROM HOME C/O ABDOMINAL PAIN FOR 2 DAYS POINTS TO MULTIPLE AREAS OF PAIN--RUQ, LUQ, EPIGASTRIC, SUPRAPUBIC PAIN IS CONSTANT AND NOTHING WORSENS OR IMPROVES PAIN--HAS NOT TAKEN ANYTHING FOR PAIN NO NAUSEA/VOMITING--HAS CONTINUED TO EAT AND DRINK USUAL. LAST FOOD INTAKE WAS FOR BREAKFAST THIS MORNING STATES HE HAS HAD DIARRHEA--HAD 1 STOOL TODAY, THINKS HIS STOOLS HAVE HAD BRIGHT RED BLOOD IN THEM NO FEVER/SWEATS/CHILLS HAD SLIGHT BURNING ON URINATION TODAY HAS NOT TAKEN ANYTHING FOR SYMPTOMS STATES HE HAD SIMILAR IN 2018--STATES HE WAS DX WITH A KIDNEY STONE AND "ULCER" --BUT NO TESTS WERE DONE, AND NO ENDOSCOPY STATES HE PASSED KIDNEY STONE ON HIS OWN. NO PRIOR ABDOMINAL SURGERIES OR ENDOSCOPIES NO KNOWN SICK CONTACTS OR SUSPICIOUS FOODS NO KNOWN EXPOSURE TO COVID-19 PCP: [facility], HAFSA GELLER Allergies and Home Medications Allergies Coded Allergies: No Known Drug Allergies (Unverified , 07/28/10) Home Medications Gabapentin 300 Mg Cap, 300 MG PO HS, (Reported) Lamotrigine 200 Mg Tablet, 1 EACH PO HS, (Reported) Mupirocin Calcium 15 Gm Cream..g., 15 GM TP TID Prescribed by: CARIN CHAVEZ on 07/02/18 1602 Sulfamethoxazole/Trimethoprim 1 Each Tablet, 1 EACH PO BID Prescribed by: CARIN CHAVEZ on 07/02/18 1602 Patient Home Medication List Home Medication List Reviewed: Yes Review of Systems Review of Systems Constitutional: no symptoms reported; No chills, No diaphoresis, No dizziness, No fever Respiratory: No Symptoms Reported Cardiovascular: No Symptoms Reported Gastrointestinal: See HPI, Abdominal Pain; Denies Nausea, Denies Poor Appetite, Denies Poor Fluid Intake; Rectal Bleeding; Denies Vomiting Genitourinary: See HPI, Burning Musculoskeletal: no symptoms reported; No back pain Skin: no symptoms reported Psychiatric/Neurological: No Symptoms Reported Endocrine: No Symptoms Reported Hematologic/Lymphatic: No Symptoms Reported Past Bofkegq-Axocqd-Zjxeav Hx Past Med/Social Hx: Reviewed and Corrections made Patient Social History Alcohol Use: Occasionally Uses (HEAVY IN PAST) Recreational Drug Use: Yes (HX OF METH USE, + IV USE AND SNORTED IT) Drug of Choice: HX OF METH USE-+ IV USE AND SNORTED IT Smoking Status: Current Everyday Smoker (1 PPD) Type Used: Cigarettes 2nd Hand Smoke Exposure: Yes Recent Foreign Travel: No Contact w/Someone Who Travel: No Immunizations Up To Date Tetanus Booster (TDap): Unknown PED Vaccines UTD: Yes Seasonal Allergies Seasonal Allergies: No Past Medical History Surgeries: Yes (LEFT HAND SURGICAL REPAIR OF LACERATION) Orthopedic Respiratory: No Cardiac: No Neurological: Yes (SEIZURES CHILD--"OUTGREW THEM" PER PT) Seizure Disorder Genitourinary: Yes Kidney Stones Gastrointestinal: No Musculoskeletal: Yes (LEFT HAND SURGICAL REPAIR OF LACERATION) Endocrine: No HEENT: No Cancer: No Psychosocial: Yes Anxiety, Bipolar, Depression Integumentary: No Blood Disorders: No Physical Exam Vital Signs Vital Signs - First Documented 12/20/19 14:45 Temp 37.1 Pulse 90 Resp 15 B/P (MAP) 111/88 (96) Pulse Ox 97 O2 Delivery Room Air Capillary Refill : Height/Weight/BMI Height: 5'7.00" Weight: 138lbs. oz. 62.774392hm; 24.00 BMI Method:Stated General Appearance: WD/WN, no apparent distress, other (WALKS UPRIGHT AND MOVES WITHOUT DIFFICULTY. FLAT AFFECT. 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, no motor/sensory deficits, alert, oriented x 3 Skin: normal color, warm/dry, tattoos/piercings (TATTOOS) Progress/Results/Core Measures Results/Orders Lab Results Laboratory Tests Test 12/20/19 14:58 12/20/19 15:07 Range/Units Urine Color YELLOW Urine Clarity CLEAR Urine pH 5.5 5-9 Urine Specific [place] >=1.030 1.016-1.022 Urine Protein NEGATIVE NEGATIVE Urine Glucose (UA) NEGATIVE NEGATIVE Urine Ketones NEGATIVE NEGATIVE Urine Nitrite NEGATIVE NEGATIVE Urine Bilirubin NEGATIVE NEGATIVE Urine Urobilinogen 0.2 < = 1.0 MG/DL Urine Leukocyte Esterase NEGATIVE NEGATIVE Urine RBC (Auto) NEGATIVE NEGATIVE Urine RBC RARE /HPF Urine WBC NONE /HPF Urine Squamous Epithelial Cells NONE /HPF Urine Crystals NONE /LPF Urine Bacteria NEGATIVE /HPF Urine Casts NONE /LPF Urine Mucus NEGATIVE /LPF Urine Culture Indicated NO Urine Opiates Screen NEGATIVE NEGATIVE Urine Oxycodone Screen NEGATIVE NEGATIVE Urine Methadone Screen NEGATIVE NEGATIVE Urine Propoxyphene Screen NEGATIVE NEGATIVE Urine Barbiturates Screen NEGATIVE NEGATIVE Ur Tricyclic Antidepressants Screen NEGATIVE NEGATIVE Urine Phencyclidine Screen NEGATIVE NEGATIVE Urine Amphetamines Screen NEGATIVE NEGATIVE Urine Methamphetamines Screen NEGATIVE NEGATIVE Urine Benzodiazepines Screen NEGATIVE NEGATIVE Urine Cocaine Screen NEGATIVE NEGATIVE Urine Cannabinoids Screen NEGATIVE NEGATIVE White Blood Count 12.2 H 4.3-11.0 10^3/uL Red Blood Count 5.33 4.35-5.85 10^6/uL Hemoglobin 16.4 13.3-17.7 G/DL Hematocrit 47 40-54 % Mean Corpuscular Volume 88 80-99 FL Mean Corpuscular Hemoglobin 31 25-34 PG Mean Corpuscular Hemoglobin Concent 35 32-36 G/DL Red Cell Distribution Width 13.6 10.0-14.5 % Platelet Count 256 130-400 10^3/uL Mean Platelet Volume 10.7 H 7.4-10.4 FL Neutrophils (%) (Auto) 71 42-75 % Lymphocytes (%) (Auto) 19 12-44 % Monocytes (%) (Auto) 9 0-12 % Eosinophils (%) (Auto) 1 0-10 % Basophils (%) (Auto) 0 0-10 % Neutrophils # (Auto) 8.7 H 1.8-7.8 X 10^3 Lymphocytes # (Auto) 2.3 1.0-4.0 X 10^3 Monocytes # (Auto) 1.1 H 0.0-1.0 X 10^3 Eosinophils # (Auto) 0.1 0.0-0.3 10^3/uL Basophils # (Auto) 0.0 0.0-0.1 10^3/uL Prothrombin Time 14.6 12.2-14.7 SEC INR Comment 1.1 0.8-1.4 Activated Partial Thromboplast Time 32 24-35 SEC Sodium Level 140 135-145 MMOL/L Potassium Level 3.9 3.6-5.0 MMOL/L Chloride Level 106 98-107 MMOL/L Carbon Dioxide Level 22 21-32 MMOL/L Anion Gap 12 5-14 MMOL/L Blood Urea Nitrogen 13 7-18 MG/DL Creatinine 0.93 0.60-1.30 MG/DL Estimat Glomerular Filtration Rate > 60 BUN/Creatinine Ratio 14 Glucose Level 86 70-105 MG/DL Calcium Level 9.0 8.5-10.1 MG/DL Corrected Calcium 8.6 8.5-10.1 MG/DL Magnesium Level 2.1 1.6-2.4 MG/DL Total Bilirubin 0.3 0.1-1.0 MG/DL Aspartate Amino Transf (AST/SGOT) 19 5-34 U/L Alanine Aminotransferase (ALT/SGPT) 22 0-55 U/L Alkaline Phosphatase 89 40-136 U/L Total Protein 7.5 6.4-8.2 GM/DL Albumin 4.5 3.2-4.5 GM/DL Amylase Level 55 25-125 U/L Lipase 7 L 8-78 U/L Serum Alcohol < 10 <10 MG/DL My Orders Orders - SHANNAN ALMARAZ DO Ed Iv/Invasive Line Start (12/20/19 14:51) Monitor-Rhythm Ecg Trace Only (12/20/19 14:51) Alcohol (12/20/19 14:51) Amylase (12/20/19 14:51) Cbc With Automated Diff (12/20/19 14:51) Comprehensive Metabolic Panel (12/20/19 14:51) Drug Screen Stat (Urine) (12/20/19 14:51) Lipase (12/20/19 14:51) Magnesium (12/20/19 14:51) Protime With Inr (12/20/19 14:51) Partial Thromboplastin Time (12/20/19 14:51) Ua Culture If Indicated (12/20/19 14:51) Ed Iv/Invasive Line Start (12/20/19 14:51) Lactated Ringers (Lr 1000 Ml Iv Solution (12/20/19 14:51) Ct Abdomen/Pelvis W (12/20/19 15:38) Acute Abd Series (12/20/19 15:38) Iohexol Injection (Omnipaque 350 Mg/Ml 1 (12/20/19 16:00) Received Contrast (Hold Metformin- Contr (12/20/19 16:00) Ns (Ivpb) (Sodium Chloride 0.9% Ivpb Bag (12/20/19 16:00) Medications Given in ED Current Medications Medications Dose Ordered Sig/Alexander Route Start Time Stop Time Status Last Admin Dose Admin Iohexol 100 ml ONCE ONCE IV 12/20/19 16:00 12/20/19 16:01 DC 12/20/19 16:27 93 ML Lactated Ringer's 1,000 ml @ 0 mls/hr Q0M ONCE IV 12/20/19 14:51 12/20/19 14:54 DC 12/20/19 15:08 0 MLS/HR Sodium Chloride 100 ml ONCE ONCE IV 12/20/19 16:00 12/20/19 16:01 DC 12/20/19 16:27 80 ML Vital Signs/I&O 12/20/19 14:45 Temp 37.1 Pulse 90 Resp 15 B/P (MAP) 111/88 (96) Pulse Ox 97 O2 Delivery Room Air Progress Progress Note : Progress Note UNEVENTFUL ER STAY NO DIARRHEA DURING ER STAY Diagnostic Imaging Comments ABDOMEN XRAYS--NO ACUTE PROCESS CT ABDOMEN/PELVIS IMPRESSION: CT abdomen and pelvis: 1. Questionable mild wall thickening of the proximal aspect of the transverse colon which may relate to a nonspecific colitis. Infectious and inflammatory etiologies would be favored. Recommend correlation. 2. There is a 1.2 cm right renal lesion which is technically indeterminate. 3. There is differential attenuation within the lower lobe pulmonary artery branches; however, this could relate to the timing of the contrast bolus. If there is clinical concern for pulmonary embolus, further assessment with CT angiography of chest with intravenous contrast is recommended. PER RADIOLOGIST REPORTS AT 1645 Reviewed: Reviewed by Me Departure Impression Primary Impression: Colitis Disposition: HOME, SELF-CARE Condition: Stable Departure-Patient Inst. Referrals: [facility] (PCP/Family) Primary Care Physician Patient Instructions: Colitis (DC) Add. Discharge Instructions: CLEAR LIQUIDS--WATER, BROTH, JELLO, GATORADE TOMORROW IF YOU ARE BETTER, ADD BRATS DIET TO CLEAR LIQUIDS--BANANAS, RICE, APPLESAUCE, TOAST, SALTINES FOLLOW UP WITH DR. KRUSE, GENERAL SURGEON, IN 2-3 DAYS FOR FURTHER CARE All discharge instructions reviewed with patient and/or family. Voiced understanding. Scripts Pantoprazole Sodium (Protonix) 40 Mg Tablet.dr 40 MG PO DAILY, #15 TAB Prov: SHANNAN ALMARAZ DO 12/20/19 Metronidazole (Flagyl) 500 Mg Tablet 500 MG PO QID, #40 TAB Prov: SHANNAN ALMARAZ DO 12/20/19 L. Acidophilus/Pectin, [place] (Acidophilus Capsule) 1 Each Capsule 2 EACH PO QID, #40 CAP Prov: SHANNAN ALMARAZ DO 12/20/19 Ciprofloxacin HCl (Ciprofloxacin HCl) 500 Mg Tablet 500 MG PO BID, #14 TAB Prov: SHANNAN ALMARAZ DO 12/20/19 SHANNAN ALMARAZ DO Dec 20, 2019 15:12
[2019-12-20 15:17] LABS: BASOPHILS % (AUTO) 0 % (0-10); EOSINOPHILS # (AUTO) 0.1 10^3/uL (0.0-0.3); EOSINOPHILS % (AUTO) 1 % (0-10); HEMATOCRIT 47 % (40-54); HEMOGLOBIN 16.4 G/DL (13.3-17.7); LYMPHOCYTES # (AUTO) 2.3 X 10^3 (1.0-4.0); LYMPHOCYTES % (AUTO) 19 % (12-44); MEAN CORPUSCULAR HEMOGLOBIN 31 PG (25-34); MEAN CORPUSCULAR HGB CONC 35 G/DL (32-36); MEAN CORPUSCULAR VOLUME 88 FL (80-99); MEAN PLATELET VOLUME 10.7 FL (7.4-10.4); MONOCYTES # (AUTO) 1.1 X 10^3 (0.0-1.0); MONOCYTES % (AUTO) 9 % (0-12); NEUTROPHILS # (AUTO) 8.7 X 10^3 (1.8-7.8); NEUTROPHILS % (AUTO) 71 % (42-75); PLATELET COUNT 256 10^3/uL (130-400); RED CELL DISTRIBUTION WIDTH 13.6 % (10.0-14.5); WHITE BLOOD COUNT 12.2 10^3/uL (4.3-11.0)
[2019-12-20 15:21] LABS: BENZODIAZEPINES SCREEN URINE NEGATIVE (NEGATIVE)
[2019-12-20 15:22] LABS: AMPHETAMINE SCREEN, URINE NEGATIVE (NEGATIVE); BARBITURATE SCREEN URINE NEGATIVE (NEGATIVE); CANNABINOID SCREEN, URINE NEGATIVE (NEGATIVE); COCAINE SCREEN URINE NEGATIVE (NEGATIVE); METHADONE STAT NEGATIVE (NEGATIVE); METHAMPHETAMINE SCREEN URINE S NEGATIVE (NEGATIVE); OPIATE SCREEN URINE NEGATIVE (NEGATIVE); OXYCODONE STAT NEGATIVE (NEGATIVE); PROPOXYPHENE STAT NEGATIVE (NEGATIVE); TRICYCLIC ANTIDEPRESSANTS SCRE NEGATIVE (NEGATIVE)
[2019-12-20 15:30] LABS: ALBUMIN 4.5 GM/DL (3.2-4.5); CHLORIDE 106 MMOL/L (98-107); INR 1.1 (0.8-1.4); POTASSIUM 3.9 MMOL/L (3.6-5.0); PROTHROMBIN TIME PATIENT 14.6 SEC (12.2-14.7); SODIUM 140 MMOL/L (135-145)
[2019-12-20 15:32] LABS: AMYLASE 55 U/L (25-125)
[2019-12-20 15:33] LABS: GLUCOSE 86 MG/DL (70-105); TOTAL PROTEIN 7.5 GM/DL (6.4-8.2)
[2019-12-20 15:34] LABS: BILIRUBIN,TOTAL 0.3 MG/DL (0.1-1.0); CARBON DIOXIDE 22 MMOL/L (21-32)
[2019-12-20 15:36] LABS: ALKALINE PHOSPHATASE 89 U/L (40-136); CREATININE SERUM 0.93 MG/DL (0.60-1.30); GFR ESTIMATED > 60
[2019-12-20 15:37] LABS: BUN/CREATININE RATIO 14
[2019-12-20 15:39] LABS: ALANINE AMINOTRANSFERASE 22 U/L (0-55)
[2019-12-20 15:40] LABS: MAGNESIUM 2.1 MG/DL (1.6-2.4)
[2019-12-20 15:41] LABS: LIPASE 7 U/L (8-78)
[2019-12-20] MEDS ORDERED: NS 100 ML (IVPB) BAG IV ONE (16:00)
[2019-12-20] MEDS ORDERED: IOHEXOL 350 MG/ML 100 ML (OMNIPAQUE 350) VIAL IV ONE (16:00)
[2019-12-20] MEDS ORDERED: HOLD METFORMIN - RECEIVED CONTRAST 20 ML VIAL IV SCH (16:00)
--- NOTE | 2019-12-20 16:09 | Diagnostic Imaging Report ---
Indication: Upper abdominal pain, bloody stools and diarrhea. Comparison: None. Discussion: AP view of the chest and two views of the abdomen were obtained. The heart and lungs are normal. No osseous abnormality. No pathologic calcification. No evidence of pneumatosis or pneumoperitoneum. No obstruction or constipation. Impression: Unremarkable bowel gas pattern. No acute cardiopulmonary process. Dictated by: Dictated on workstation # [id number]
--- NOTE | 2019-12-20 16:40 | Diagnostic Imaging Report ---
PROCEDURE: CT abdomen and pelvis with contrast. TECHNIQUE: Multiple contiguous axial images were obtained through the abdomen and pelvis after administration of intravenous contrast. Auto Exposure Controls were utilized during the CT exam to meet ALARA standards for radiation dose reduction. DATE: December 20, 2019. COMPARISON: None. INDICATION: 34-year-old male, suprapubic abdominal pain for two days. FINDINGS: The visualized portions of the lung bases are clear. The heart is not enlarged. The study is nondiagnostic for assessment of pulmonary emboli. There is altered attenuation present in the visualized pulmonary artery branches in both lobes. Recommend correlation clinically. If there is clinical concern for pulmonary embolus, CT angiography chest with intravenous contrast is recommended for further assessment. The liver is normal in size and contour. There is no identified liver lesion. The main, right and left portal veins are patent. The gallbladder is unremarkable. There is no intrahepatic or extrahepatic bile duct dilation. The main pancreatic duct is not abnormally dilated. Unremarkable appearance of the pancreatic parenchyma. The spleen is normal in size. The adrenal glands are unremarkable. There is a low-attenuation right renal lesion on delayed axial image 30 which measures 12 mm in size. Internal attenuation measures 33 Hounsfield units. This is indeterminate. The urinary collecting systems are not distended. There is no identified renal or ureteral stone. Urinary bladder is unremarkable. The appendix is unremarkable. There is no distention of the intestinal tract. There is no free intraperitoneal air. There is no drainable fluid collection. There is no free pelvic fluid. There is no identified abnormally enlarged lymph node in the abdomen or pelvis which meets CT size criteria for adenopathy. There is questionable mild wall thickening of the transverse colon. There is no identified acute bony abnormality. IMPRESSION: CT abdomen and pelvis: 1. Questionable mild wall thickening of the proximal aspect of the transverse colon which may relate to a nonspecific colitis. Infectious and inflammatory etiologies would be favored. Recommend correlation. 2. There is a 1.2 cm right renal lesion which is technically indeterminate. 3. There is differential attenuation within the lower lobe pulmonary artery branches; however, this could relate to the timing of the contrast bolus. If there is clinical concern for pulmonary embolus, further assessment with CT angiography of chest with intravenous contrast is recommended. Dictated by: Dictated on workstation # [id number]
[2019-12-20] MEDS ORDERED: METR500T PO (16:47)
[2019-12-20] MEDS ORDERED: CIPR500T4 PO (16:47)
[2019-12-20] MEDS ORDERED: L. A1CAP11 PO (16:47)
[2019-12-20] MEDS ORDERED: PANT40TA2 PO (16:47)
[2019-12-20 16:57] VITALS: BP 134/96
== END 2019-12-20 16:57 | disposition home or self-care (01) ==
LOC: EDUNIT# 14:40 → ER 14:41
DX: K52.9 Noninfective gastroenteritis and colitis, unspecified (principal); F17.210 Nicotine dependence, cigarettes, uncomplicated; F41.9 Anxiety disorder, unspecified; F31.9 Bipolar disorder, unspecified
CPT/HCPCS: 74022; 74177; 80053; 80306; 81000; 82150; 83690; 83735; 85025; 85610; 85730; 99284; G0480; 36415; 80320

== ENCOUNTER 2020-01-29 13:00 | Outpatient (CLI) | payer MEDICARE, MEDICAID ==
[~2020-01-29] VITALS: Ht 172.7 cm; Wt 73.6 kg
[~2020-01-29 13:00] MED LIST changes: +CIPR500T4 PO; +L. A1CAP11 PO; +METR500T PO; +PANT40TA2 PO
[2020-01-29] MEDS ORDERED: LAMO100T5 PO (13:04)
== END 2020-01-29 13:09 | disposition home or self-care (01) ==
LOC: PREOP 13:00
PROVIDERS: ATTEND Surgery
DX: Z01.818 Encounter for other preprocedural examination (principal)

== ENCOUNTER → 2020-02-03 | Day surgery (SDC) | payer MEDICARE, MEDICAID ==
[~2020-02-03] VITALS: Ht 172.7 cm; Wt 73.6 kg
[2020-02-03] VITALS (7 sets, daily range): BP systolic 91–120; BP diastolic 50–80
[~2020-02-03] MED LIST changes: +LACTATED RINGERS 1,000 ML IV ONE; +LACTATED RINGERS 1,000 ML IV STA; +LAMO100T5 PO; +MIDAZOLAM 2 MG/2 ML (VERSED) VIAL ONE; +PROPOFOL INJECTION 50 ML IV ONE
[2020-02-03 11:27] LABS: AMPHETAMINE SCREEN, URINE NEGATIVE (NEGATIVE); BARBITURATE SCREEN URINE NEGATIVE (NEGATIVE); BENZODIAZEPINES SCREEN URINE NEGATIVE (NEGATIVE); CANNABINOID SCREEN, URINE NEGATIVE (NEGATIVE); COCAINE SCREEN URINE NEGATIVE (NEGATIVE); METHADONE STAT NEGATIVE (NEGATIVE); METHAMPHETAMINE SCREEN URINE S NEGATIVE (NEGATIVE); OPIATE SCREEN URINE NEGATIVE (NEGATIVE); OXYCODONE STAT NEGATIVE (NEGATIVE); PROPOXYPHENE STAT NEGATIVE (NEGATIVE); TRICYCLIC ANTIDEPRESSANTS SCRE NEGATIVE (NEGATIVE)
--- NOTE | 2020-02-03 12:21 | Progress Note-Pre Operative ---
Pre-Operative Progress Note H&P Reviewed The H&P was reviewed, patient examined and no changes noted. Date Seen by Provider: Feb 03, 2020 Time Seen by Provider: 12:18 Date H&P Reviewed: Feb 03, 2020 Time H&P Reviewed: 12:18 Pre-Operative Diagnosis: hx colitis, family hx colon cancer JONES KRUSE DO Feb 03, 2020 12:21
--- NOTE | 2020-02-03 13:41 | Progress Note-Post Operative ---
Post-Operative Progess Note Surgeon (s)/Elevator Constructor Helper (s) Surgeon JONES KRUSE DO Elevator Constructor Helper: na Pre-Operative Diagnosis hx colitis, family hx colon cancer Post-Operative Diagnosis colon polyps Procedure & Operative Findings Date of Procedure 02/03/20 Procedure Performed/Findings colonoscopy with hot bx polypectomy x 6 and snare polypectomy x 1 Anesthesia Type per fish processing supervisor Estimated Blood Loss Estimated blood loss (mL): none Specimens/Packing Specimens Removed colon polyps JONES KRUSE DO Feb 03, 2020 13:41
--- NOTE | 2020-02-03 13:43 | Discharge Inst-Simple/Standard ---
Discharge Inst-Standard Patient Instructions/Follow Up Plan of Care/Instructions/FU: 2 weeks dave Activity as Tolerated: Yes Discharge Diet: Regular Diet JONES KRUSE DO Feb 03, 2020 13:43
--- NOTE | 2020-02-03 14:00 | Anesthesia-General Post-Op ---
MAC Patient Condition Mental Status/LOC: Same as Preop Cardiovascular: Satisfactory Nausea/Vomiting: Absent Respiratory: Satisfactory Pain: Controlled Complications: Absent Post Op Complications Complications None Follow Up Care/Instructions Patient Instructions None needed. Anesthesiology Discharge Order Discharge Order Patient is doing well, no complaints, stable vital signs, no apparent adverse anesthesia problems. No complications reported per nursing. FILI BROUSSARD CRNA Feb 03, 2020 14:00
--- NOTE | 2020-02-03 23:02 | OPERATIVE REPORT ---
DATE OF SERVICE: 02/03/2020 PREOPERATIVE DIAGNOSIS: History of colitis, family history of colon cancer. POSTOPERATIVE DIAGNOSIS: Colon polyps. PROCEDURE: Colonoscopy with hot biopsy polypectomy x6 and snare polypectomy x1. SURGEON: Jones Dumont DO ANESTHESIA: MANAGER COMPETITIVE INTELLIGENCE. ESTIMATED BLOOD LOSS: None. COMPLICATIONS: None. INDICATIONS: The patient is a 34-year-old male with a history of colitis and family history of colon cancer. He understands risks and benefits of procedure and wished to proceed with procedure. Consent was signed in the chart. DESCRIPTION OF PROCEDURE: The patient was taken to the endoscopy suite, placed in left lateral recumbent position. Timeout was performed. Digital rectal exam was performed. There were no palpable polyps, masses or ulcerations. Scope was inserted in the rectum, advanced all the way to cecum with minimal difficulty. Prep was adequate with irrigation and suction. Scope was then slowly retracted back. There were no polyps, masses or ulcerations in the cecum. In the ascending colon, a small polyp was present, which hot biopsy polypectomy was performed. Scope was then continued slowly retracted back where there were 2 polyps in the transverse colon, which hot biopsy polypectomy was performed. Scope was then continuously retracted back. There were no polyps, masses or ulcerations in the descending colon. In the sigmoid, there are 2 polyps next to each other that that were small in size, which hot biopsy polypectomies were performed on these two and then there was one larger polyp, which snare polypectomy was performed. Scope was then continuously retracted back into the rectum where another small polyp was present, which hot biopsy polypectomy was performed. Scope was retroflexed noting no other pathology. Scope was returned to its normal position, slowly withdrawn until completely removed. The patient tolerated procedure well without any complications. He was taken to recovery room in stable condition. RECOMMENDATIONS: The patient will need repeat colonoscopy in one year. Any issues before that be seen at that time. The patient will follow up in the office in 2 weeks to discuss pathology results. Job ID: [id number] DocumentID: [id number] Dictated Date: 02/03/2020 13:46:06 Subsystems Engineer Date: 02/03/2020 23:01:47 Dictated By: JONES DUMONT DO
== END | disposition home or self-care (01) ==
LOC: ENDO 11:00
PROVIDERS: ATTEND Surgery
DX: D12.3 Benign neoplasm of transverse colon (principal); K63.5 Polyp of colon; K62.1 Rectal polyp; Z80.0 Family history of malignant neoplasm of digestive organs; G40.909 Epilepsy, unspecified, not intractable, without status epilepticus; F98.8 Other specified behavioral and emotional disorders with onset usually occurring in childhood and adolescence; F41.9 Anxiety disorder, unspecified; F40.10 Social phobia, unspecified; F60.1 Schizoid personality disorder; F22 Delusional disorders; F17.210 Nicotine dependence, cigarettes, uncomplicated; F31.9 Bipolar disorder, unspecified; Z87.19 Personal history of other diseases of the digestive system
CPT/HCPCS: 80306; 88305

== ENCOUNTER 2021-04-01 05:27 | Outpatient (RCR) | payer MEDICARE, MEDICAID ==
[~2021-04-01] VITALS: Ht 175.3 cm; Wt 72.1 kg
[~2021-04-01 05:27] MED LIST changes: -CIPR500T4 PO; +CIPR500T5 PO; -LACTATED RINGERS 1,000 ML IV ONE; -LACTATED RINGERS 1,000 ML IV STA; -MIDAZOLAM 2 MG/2 ML (VERSED) VIAL ONE; -PROPOFOL INJECTION 50 ML IV ONE; -SULF1TAB35 PO; +SULF1TAB38 PO
[2021-04-05] MEDS ORDERED: PANT40TA2 PO (13:14)
== END 2021-04-01 13:36 | disposition home or self-care (01) ==
LOC: PREOP 05:27
PROVIDERS: ATTEND Surgery
DX: Z01.812 Encounter for preprocedural laboratory examination (principal); K21.9 Gastro-esophageal reflux disease without esophagitis; Z20.822 Contact with and (suspected) exposure to COVID-19; Z86.010 Personal history of colon polyps; Z85.038 Personal history of other malignant neoplasm of large intestine
CPT/HCPCS: 87635

== ENCOUNTER 2021-04-05 09:58 | Day surgery (SDC) | payer MEDICARE, MEDICAID ==
[~2021-04-05] VITALS: Ht 175.3 cm; Wt 72.1 kg
[2021-04-05] VITALS (8 sets, daily range): BP systolic 89–108; BP diastolic 52–80
[2021-04-05] MEDS ORDERED: LACTATED RINGERS 1,000 ML IV ONE (10:07)
[2021-04-05] MEDS ORDERED: LACTATED RINGERS 1,000 ML IV STA (10:23)
--- NOTE | 2021-04-05 10:28 | Progress Note-Pre Operative ---
Pre-Operative Progress Note H&P Reviewed The H&P was reviewed, patient examined and no changes noted. Date Seen by Provider: Apr 05, 2021 Time Seen by Provider: : Date H&P Reviewed: Apr 05, 2021 Time H&P Reviewed: : Pre-Operative Diagnosis: gerd, family hx colon cancer, hx polyps JONES KRUSE DO Apr 05, 2021 10:28
[2021-04-05] MEDS ORDERED: HURRICAINE EXT TUBE (BENZOCAINE) XX PRN (10:30)
[2021-04-05] MEDS ORDERED: PROPOFOL INJECTION 50 ML IV ONE (12:15)
[2021-04-05] MEDS ORDERED: MIDAZOLAM 2 MG/2 ML (VERSED) VIAL ONE (12:15)
[2021-04-05] MEDS ORDERED: proPOfol 200 MG/20 ML (DIPRIVAN) VIAL IV ONE (12:57)
--- NOTE | 2021-04-05 13:09 | Progress Note-Post Operative ---
Post-Operative Progess Note Surgeon (s)/Suture Winder Hand (s) Surgeon JONES KRUSE DO Suture Winder Hand: na Pre-Operative Diagnosis gerd, family hx colon cancer, hx polyps Post-Operative Diagnosis hiatal hernia, colon polyps, minimal diverticulosis Procedure & Operative Findings Date of Procedure 04/05/21 Procedure Performed/Findings egd c biopsies, colonoscopy c hot bx polypectomy x 5 snare polypectomy x 1 and fulguration x 4 Anesthesia Type per [facility] Estimated Blood Loss Estimated blood loss (mL): none Specimens/Packing Specimens Removed antrum, ge, colon polyps JONES KRUSE DO Apr 05, 2021 13:09
[2021-04-05] MEDS ORDERED: PANT40TA2 PO (13:14)
--- NOTE | 2021-04-05 13:20 | Discharge Inst-Simple/Standard ---
Discharge Inst-Standard Discharge Medications New, Converted or Re-Newed RX: Transmitted to Pharmacy Patient Instructions/Follow Up Plan of Care/Instructions/FU: 3 weeks Tim Activity as Tolerated: Yes Discharge Diet: Regular Diet JONES KRUSE DO Apr 05, 2021 13:19
--- NOTE | 2021-04-05 14:29 | Anesthesia-General Post-Op ---
MAC Patient Condition Mental Status/LOC: Same as Preop Cardiovascular: Satisfactory Nausea/Vomiting: Absent Respiratory: Satisfactory Pain: Controlled Complications: Absent Post Op Complications Complications None Follow Up Care/Instructions Patient Instructions None needed. Anesthesiology Discharge Order Discharge Order Patient was seen after the procedure and he was doing well, no complaints, stable vital signs, no apparent adverse anesthesia problems. SAVANNAH MAO DO Apr 05, 2021 14:29
--- NOTE | 2021-04-05 19:38 | OPERATIVE REPORT ---
DATE OF SERVICE: 04/05/2021 PREOPERATIVE DIAGNOSES: Gastroesophageal reflux disease, family history of colon cancer and history of polyps. POSTOPERATIVE DIAGNOSES: Hiatal hernia, colon polyps, and minimal diverticulosis. PROCEDURES PERFORMED: EGD with biopsies, colonoscopy with hot biopsy polypectomy x5 and snare polypectomy x1 and fulguration x4. SURGEON: Jones Dumont DO. ANESTHESIA: Per MDA. ESTIMATED BLOOD LOSS: None. COMPLICATIONS: None. SPECIMENS: Antrum, GE junction and colon polyps. INDICATIONS FOR PROCEDURE: The patient is a 35-year-old male with history of polyps, family history of colon cancer and worsening GERD symptoms. He understands the risks and benefits of the procedure and wishes to proceed. Consent was signed in the chart. DESCRIPTION OF PROCEDURE: The patient was taken to the endoscopy suite and placed in a left lateral recumbent position. Timeout was performed. Scope was inserted in the mouth, down the esophagus, stomach and into the duodenum without difficulty. There were no polyps, masses or ulcerations within the duodenum. Scope was slowly retracted back into the stomach, where it was further insufflated. Some slight erythematous changes. Biopsy of the antrum was obtained. There were no polyps, masses or ulcerations. Scope was retroflexed noting a hiatal hernia, moderate size. The scope was then returned to its normal position, slowly withdrawn to the distal esophagus. Biopsy of the GE junction was obtained. Scope was then slowly retracted back noting no other pathology. Digital rectal exam was performed. There were no palpable polyps, masses or ulcerations. Scope was inserted in the rectum, advanced all the way to the cecum with minimal difficulty. Prep was adequate with irrigation and suction. Scope was then slowly retracted back. No polyps, masses or ulcerations in the cecum. In the ascending colon, a small polyp was present, which hot biopsy polypectomy was performed. Scope was then continuously and slowly retracted back. In transverse colon, another polyp was present, which hot biopsy polypectomy was performed. Scope was then continuously and slowly retracted back. There were no polyps, masses or ulcerations within the descending and sigmoid colon. In the rectum, there were three polyps, which hot biopsy polypectomy was performed. There was a larger polyp, which snare polypectomy was performed and there were four small benign appearing polyps, which were fulgurated. Scope was inserted and retracted multiple times, noting no other pathology. Scope was then slowly retracted until completely removed. RECOMMENDATIONS: The patient will be started on Protonix 40 mg daily to see how his symptoms are doing with his reflux. We would consider further evaluation for a possible hiatal hernia repair unless it can get controlled medically. The patient will need a repeat colonoscopy in three years due to the polyps and await pathology results. If any new issues before that be seen at that time. CC: [facility] - requested, unable to deliver. Job ID: [id number] DocumentID: [id number] Dictated Date: 04/05/2021 13:24:01 Plating Stripper Date: 04/05/2021 19:38:32 Dictated By: JONES DUMONT DO
== END 2021-04-05 14:00 | disposition home or self-care (01) ==
LOC: ENDO 09:58
PROVIDERS: ATTEND Surgery
DX: Z09 Encounter for follow-up examination after completed treatment for conditions other than malignant neoplasm (principal); D12.3 Benign neoplasm of transverse colon; K63.5 Polyp of colon; K62.1 Rectal polyp; K57.90 Diverticulosis of intestine, part unspecified, without perforation or abscess without bleeding; K44.9 Diaphragmatic hernia without obstruction or gangrene; K21.9 Gastro-esophageal reflux disease without esophagitis; F41.9 Anxiety disorder, unspecified; K21.00 Gastro-esophageal reflux disease with esophagitis, without bleeding; F32.A Depression, unspecified; F17.210 Nicotine dependence, cigarettes, uncomplicated; Z80.0 Family history of malignant neoplasm of digestive organs

== ENCOUNTER 2021-06-25 21:17 | Emergency (ER) | payer MEDICARE, MEDICAID ==
[~2021-06-25] VITALS: Ht 175 cm; Wt 72.5 kg
[2021-06-25 21:42] VITALS: BP 138/87
--- NOTE | 2021-06-25 21:55 | ED Cough/URI ---
General Chief Complaint: COVID19 Suspect/Confirmed Stated Complaint: COVID SYMPTOMS Nursing Triage Note: PT REPORTS COVID EXPOSURE 7 DAYS AGO. PT C/O FEVER 99.5, HEADACHE, GENERALIZED BODY ACHES TODAY. History of Present Illness Date Seen by Provider: Jun 25, 2021 Time Seen by Provider: 21:42 Initial Comments 35-year-old male presents for headache, myalgias and temperature of 99.5. He took 2 ibuprofen prior to arrival. He has household members positive for COVID. He received his Moderna vaccines in September and October 2020, he has not gotten the booster. He denies any shortness of breath, nausea, vomiting, diarrhea. Timing/Duration: other (2-3 days ago) Severity/Quality: mild, dry cough Prior Episodes/Possible Cause: no prior episodes Associated Symptoms: cough, fever/chills, headache, muscle aches Allergies and Home Medications Allergies Coded Allergies: No Known Drug Allergies (Unverified , 07/28/10) Patient Home Medication List Home Medication List Reviewed: Yes Lamotrigine (Lamotrigine) 100 Mg Tablet, 100 MG PO DAILY, (Reported) Entered as Reported by: KENIA DIAMOND on 01/29/20 1304 Pantoprazole Sodium (Protonix) 40 Mg Tablet.dr, 40 MG PO DAILY Prescribed by: JOENS KRUSE on 04/05/21 1314 Review of Systems Review of Systems Constitutional: see HPI, malaise, weakness Respiratory: see HPI, cough; No short of breath Cardiovascular: no symptoms reported, see HPI Gastrointestinal: no symptoms reported, see HPI All Other Systems Reviewed Negative Unless Noted: Yes Past Uhmmtvg-[id number]-[id number] Hx Patient Social History Tobacco Use?: Yes Tobacco type used: Cigarettes Substance use?: No Alcohol Use?: No Pt feels they are or have been: No Immunizations Up To Date Tetanus Booster (TDap): Unknown PED Vaccines UTD: Yes First/Initial COVID19 Vaccinat: SEPTEMBER 2020 Second COVID19 Vaccination Nino: OCTOBER 2020 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 [employer]: 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 Seasonal Allergies Seasonal Allergies: Yes Past Medical History Surgery/Hospitalization HX: ACID REFLUX, BIPOLAR Surgeries: Yes (LEFT HAND SURGICAL REPAIR OF LACERATION/COLONOSCOPY) Orthopedic Respiratory: No Cardiac: No Neurological: Yes (SEIZURES CHILD--"OUTGREW THEM" PER PT) Seizure Disorder Genitourinary: Yes Kidney Stones Gastrointestinal: Yes Colitis, Gastroesophageal Reflux Musculoskeletal: Yes (LEFT HAND SURGICAL REPAIR OF LACERATION) Endocrine: No HEENT: No Cancer: No Psychosocial: Yes Anxiety, Bipolar, Depression Integumentary: No Blood Disorders: No Family Medical History Reviewed Nursing Family Hx Colon cancer Physical Exam Vital Signs - First Documented 06/25/21 21:42 Temp 36.7 Pulse 79 Resp 18 B/P (MAP) 138/87 (104) Pulse Ox 97 O2 Delivery Room Air Capillary Refill : Less Than 3 Seconds Height: 5'7.00" Weight: 138lbs. oz. 62.199111ek; 23.00 BMI Method:Stated General Appearance: WD/WN, no apparent distress HEENT: PERRL/EOMI, normal ENT inspection, TMs normal, pharynx normal Neck: non-tender, full range of motion, supple, normal inspection Respiratory: chest non-tender, lungs clear, normal breath sounds, no respiratory distress Cardiovascular: normal peripheral pulses, regular rate, rhythm Gastrointestinal: normal bowel sounds, non tender, soft Extremities: normal range of motion, non-tender, normal inspection, normal capillary refill Neurologic/Psychiatric: no motor/sensory deficits, alert, normal mood/affect, oriented x 3 Skin: normal color, warm/dry Progress/Results/Core Measures Suspected Sepsis SIRS Temperature: Pulse: 79 Respiratory Rate: 18 Blood Pressure 138 /87 Mean: 104 Results/Orders Lab Results Laboratory Tests Test 06/25/21 21:44 Range/Units Influenza Type A Antigen NEGATIVE NEGATIVE Influenza Type B Antigen NEGATIVE NEGATIVE My Orders Orders - CARIN CHAVEZ Coronavirus Sars-Cov-2 So 2019 (06/25/21 21:46) Influenza A & B Antigens (06/25/21 21:46) Vital Signs/I&O 06/25/21 21:42 Temp 36.7 Pulse 79 Resp 18 B/P (MAP) 138/87 (104) Pulse Ox 97 O2 Delivery Room Air Capillary Refill : Less Than 3 Seconds Blood Pressure Mean: 104 Departure Impression Primary Impression: Person under investigation for COVID-19 Disposition: 01 HOME, SELF-CARE Condition: Stable Departure-Patient Inst. Decision time for Depature: 22:30 Referrals: [facility] (PCP/Family) Primary Care Physician Patient Instructions: COVID-19 (DC) Add. Discharge Instructions: Drink 16 oz of Water every 2 hours, while awake. Walk for 5 to 10 minutes every hour while awake and take deep breaths. Take aspirin 81 mg once daily. Take a multivitamin with vitamin C, D and zinc. Call your primary care provider if your symptoms are not improving or worsen. Sleep on your stomach. Alternate between Tylenol 650 mg and ibuprofen 600 mg every 4 hours as needed for fever or general discomfort. We will notify you of the COVID results in 24-48 hours, please maintain Quarantine at home and assume you have COVID, until we call you. Return to emergency department for new, urgent healthcare needs. All discharge instructions reviewed with patient and/or family. Voiced understanding. CARIN CHAVEZ Jun 25, 2021 21:55
== END 2021-06-25 22:51 | disposition home or self-care (01) ==
LOC: EDUNIT# 21:17 → ER 21:24
DX: U07.1 COVID-19 (principal); K21.9 Gastro-esophageal reflux disease without esophagitis; F31.9 Bipolar disorder, unspecified; Z72.0 Tobacco use; Z79.899 Other long term (current) drug therapy
CPT/HCPCS: 87635; 87804; 99283

== ENCOUNTER 2022-05-28 10:21 | Observation (INO) | payer MEDICARE, MEDICAID ==
[~2022-05-28] VITALS: Ht 172 cm; Wt 79.0 kg
[2022-05-28] MEDS ORDERED: IOHEXOL 350 MG/ML 100 ML (OMNIPAQUE 350) VIAL IV ONE (10:45)
[2022-05-28] MEDS ORDERED: NS 100 ML (IVPB) BAG IV ONE (10:45)
[2022-05-28 10:58] LABS: BASOPHILS % (AUTO) 0 % (0-10); EOSINOPHILS % (AUTO) 0 % (0-10); HEMATOCRIT 48 % (40-54); HEMOGLOBIN 16.9 g/dL (13.3-17.7); LYMPHOCYTES # (AUTO) 1.7 10^3/uL (1.0-4.0); LYMPHOCYTES % (AUTO) 20 % (12-44); MEAN CORPUSCULAR HEMOGLOBIN 32 pg (25-34); MEAN CORPUSCULAR HGB CONC 35 g/dL (32-36); MEAN CORPUSCULAR VOLUME 91 fL (80-99); MEAN PLATELET VOLUME 10.1 fL (9.0-12.2); MONOCYTES # (AUTO) 1.2 10^3/uL (0.0-1.0); MONOCYTES % (AUTO) 13 % (0-12); NEUTROPHILS % (AUTO) 67 % (42-75); PLATELET COUNT 225 10^3/uL (130-400); WHITE BLOOD COUNT 8.9 10^3/uL (4.3-11.0)
--- NOTE | 2022-05-28 11:01 | Diagnostic Imaging Report ---
INDICATION: Ankle pain COMPARISON: None available TECHNIQUE: 3 radiographs of the right ankle dated 05/28/2022. FINDINGS: No acute fracture or dislocation. No destructive osseous process. The talar dome is unremarkable. Ankle mortise is symmetric. 1.8 cm eccentrically located region of sclerosis is noted involving the distal tibial shaft anteriorly without associated periosteal reaction. No suspicious radiopaque foreign body. IMPRESSION: No acute osseous abnormality. 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 Dictated by: Dictated on workstation # [id number]
[2022-05-28 11:06] LABS: ALBUMIN 4.1 GM/DL (3.2-4.5); POTASSIUM 3.9 MMOL/L (3.6-5.0)
[2022-05-28 11:07] LABS: CALCIUM 8.8 MG/DL (8.5-10.1)
[2022-05-28 11:08] LABS: TOTAL PROTEIN 6.8 GM/DL (6.4-8.2)
[2022-05-28 11:10] LABS: BILIRUBIN,TOTAL 0.4 MG/DL (0.1-1.0)
[2022-05-28 11:12] LABS: CREATININE SERUM 0.75 MG/DL (0.60-1.30)
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
[2022-05-28] MEDS ORDERED: oxyCODONE/APAP 5/325MG (PERCOCET 5) TABLET PO ONE (12:30)
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
[2022-05-28] MEDS ORDERED: ASPI-999 PO (13:35)
[2022-05-28] MEDS ORDERED: NICOTINE 21 MG (NICODERM) PATCH ONE (13:40)
[2022-05-28] MEDS: NICOTINE 21 MG (NICODERM) PATCH TD SCH (13:44)
[2022-05-28] MEDS: ASPIRIN E.C. 81 MG (ECOTRIN) TAB PO SCH (13:44)
[2022-05-28] MEDS ORDERED: LACTATED RINGERS 1,000 ML IV ONE (13:45)
[2022-05-28] MEDS ORDERED: ONDANSETRON 4 MG/2 ML (SDV) Z0FRAN IV PRN (13:45)
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
[2022-05-28 15:11] VITALS: BP 131/64
[2022-05-28] MEDS: oxyCODONE/APAP 5/325MG (PERCOCET 5) TABLET PO PRN ×3 (16:37→23:34)
[2022-05-28 19:04] VITALS: BP 137/75
[2022-05-28 23:32] VITALS: BP 132/81
[2022-05-29] MEDS: oxyCODONE/APAP 5/325MG (PERCOCET 5) TABLET PO PRN ×2 (04:40→08:49)
[2022-05-29 04:41] VITALS: BP 137/81
[2022-05-29 06:05] LABS: BASOPHILS % (AUTO) 0 % (0-10); EOSINOPHILS % (AUTO) 0 % (0-10); HEMATOCRIT 46 % (40-54); HEMOGLOBIN 16.1 g/dL (13.3-17.7); LYMPHOCYTES # (AUTO) 2.5 10^3/uL (1.0-4.0); LYMPHOCYTES % (AUTO) 31 % (12-44); MEAN CORPUSCULAR HEMOGLOBIN 32 pg (25-34); MEAN CORPUSCULAR HGB CONC 35 g/dL (32-36); MEAN CORPUSCULAR VOLUME 92 fL (80-99); MEAN PLATELET VOLUME 10.6 fL (9.0-12.2); MONOCYTES # (AUTO) 0.9 10^3/uL (0.0-1.0); MONOCYTES % (AUTO) 11 % (0-12); NEUTROPHILS # (AUTO) 4.7 10^3/uL (1.8-7.8); NEUTROPHILS % (AUTO) 58 % (42-75); PLATELET COUNT 225 10^3/uL (130-400); WHITE BLOOD COUNT 8.2 10^3/uL (4.3-11.0)
[2022-05-29 06:28] LABS: CALCIUM 8.5 MG/DL (8.5-10.1); CREATININE SERUM 0.77 MG/DL (0.60-1.30); POTASSIUM 3.5 MMOL/L (3.6-5.0)
[2022-05-29 07:22] VITALS: BP 136/79
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
[2022-05-29] MEDS: NICOTINE 21 MG (NICODERM) PATCH TD SCH (08:49)
[2022-05-29] MEDS ORDERED: NICOTINE PATCH REMOVAL TP SCH (08:59)
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
[2022-05-29] MEDS ORDERED: PANTOPRAZOLE 40 MG (PROTONIX) TAB PO SCH (09:00)
[2022-05-29] MEDS: ASPIRIN E.C. 81 MG (ECOTRIN) TAB PO SCH (09:20)
[2022-05-29 11:15] VITALS: BP 127/73
[2022-05-29] MEDS ORDERED: KCL 20 MEQ TAB (K-DUR) PO NR (13:00)
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
[2022-05-29] MEDS ORDERED: OXYC1TAB87 PO (14:40)
--- NOTE | 2022-05-29 14:55 | Discharge Inst-Simple/Standard ---
Discharge Inst-Standard Discharge Medications New, Converted or Re-Newed RX: Transmitted to Pharmacy Patient Instructions/Follow Up Plan of Care/Instructions/FU: 1-2 weeks Tim Activity as Tolerated: Yes Discharge Diet: Regular Diet Other Inst to Patient Follow up Appt: Make appointment in 1- 2 week. Symptoms to Report: Appetite Changes, Extremity Discoloration, Numbness/Tingling, Swelling Increased, Bleeding Excessive, Eyesight Changes, Pain Increased, Urine Color Change, Constipation(Persistent), Fever over 101 degree F, Pain/Pressure in chest, Urinating Difficulty, Cough Up/Vomit Blood, Heart Beat Irreg/Pounding, Pain/Pressure in jaw, Vaginal Bleeding Increase, Cramps in feet or legs, Lightheadedness, Pain/Pressure in shoulder, Diarrhea(Persistent), Memory Changes Suddenly, Questions/Concerns, Weight gain consecutive days, Dizziness/Fainting, Nausea/Vomiting, Shortness of Breath, Weight gain over 2 pounds If questions or concerns contact your physician Or seek help at emergency department. JONES KRUSE DO May 29, 2022 14:55
[2022-05-29 15:22] VITALS: BP 127/73
== END 2022-05-29 14:37 | disposition home or self-care (01) ==
LOC: EDUNIT# 10:21 → ER 10:25 → UNDOADMOB 12:31 → 4TH 12:31 → UNDODISOB 05-29 14:37
PROVIDERS: ADMIT Surgery; ATTEND Surgery
DX: S29.9XXA Unspecified injury of thorax, initial encounter (principal); F31.9 Bipolar disorder, unspecified; K21.9 Gastro-esophageal reflux disease without esophagitis; F17.290 Nicotine dependence, other tobacco product, uncomplicated
CPT/HCPCS: 71260; 72125; 73610; 74177; 80048; 80053; 80061; 83690; 84484 ×2; 85025 ×2; 93005; 96361; 99283; C8929; G0378; 36415; 93306

== ENCOUNTER 2022-10-16 11:28 | Emergency (ER) | payer MEDICARE, MEDICAID ==
[~2022-10-16 11:28] MED LIST changes: +ASPI-999 PO; +OXYC1TAB87 PO
[2022-10-16 11:47] VITALS: BP 117/75
--- NOTE | 2022-10-16 12:01 | ED General ---
General Chief Complaint: General Problems/Pain Stated Complaint: LT SIDE PAIN, SORENESS Source of Information: Patient Exam Limitations: No Limitations History of Present Illness Date Seen by Provider: October 16, 2022 Time Seen by Provider: 11:58 Initial Comments Patient is a 37-year-old male who presents ED with a skin lesion to his left lateral upper ribs. Noticed this area last night. Reports some dull achy pain. Denies any trauma. Denies increased size or redness. Describes it as a "lump" in the skin that is free movable. No specific or worsening pain with movement. No history of cancer. Denies fever, chills, nausea, vomiting, diarrhea. Allergies and Home Medications Allergies Coded Allergies: No Known Drug Allergies (Unverified , 07/28/10) Patient Home Medication List Home Medication List Reviewed: Yes Aspirin (Aspirin) 81 Mg Tab.chew, 81 MG PO DAILY, (Reported) Entered as Reported by: LUCIEN JARQUIN on 05/28/22 1335 Lamotrigine (Lamotrigine) 100 Mg Tablet, 100 MG PO DAILY, (Reported) Entered as Reported by: KENIA DIAMOND on 01/29/20 1304 Oxycodone HCl/Acetaminophen (Percocet 5-325 mg Tablet) 1 Each Tablet, 1 TAB PO Q4H PRN for PAIN-MODERATE (5-7) Prescribed by: JONES KRUSE on 05/29/22 1454 Pantoprazole Sodium (Protonix) 40 Mg Tablet.dr, 40 MG PO DAILY Prescribed by: JONES KRUSE on 04/05/21 1314 Review of Systems Review of Systems Constitutional: No chills, No diaphoresis, No malaise, No weakness EENTM: No hearing loss, No blurred vision, No double vision Respiratory: No cough, No dyspnea on exertion Cardiovascular: No chest pain Gastrointestinal: No abdominal pain, No diarrhea, No nausea, No vomiting Genitourinary: No decreased output, No discharge Musculoskeletal: No back pain, No joint pain, No joint swelling, No muscle pain Skin: change in color, lumps (Single lump left lateral) All Other Systems Reviewed Negative Unless Noted: Yes Past Usziodm-Wdckps-Dlfimq Hx Patient Social History Tobacco Use?: Yes Tobacco type used: Cigarettes Smoking Status: Current Everyday Smoker Substance use?: No Alcohol Use?: Yes Alcohol Frequency: Once in a while Pt feels they are or have been: No Immunizations Up To Date Tetanus Booster (TDap): Unknown PED Vaccines UTD: Yes First/Initial COVID19 Vaccinat: SEPTEMBER 2020 Second COVID19 Vaccination Nino: OCTOBER 2020 Third COVID19 Vaccination Date: SEPTEMBER 2020 Seasonal Allergies Seasonal Allergies: Yes Past Medical History Surgery/Hospitalization HX: ACID REFLUX, BIPOLAR Surgeries: Yes (LEFT HAND SURGICAL REPAIR OF LACERATION/COLONOSCOPY) Orthopedic Respiratory: No Cardiac: Yes Hypertension Neurological: Yes (SEIZURES CHILD--"OUTGREW THEM" PER PT) Seizure Disorder Genitourinary: Yes Kidney Stones Gastrointestinal: Yes Colitis, Gastroesophageal Reflux Musculoskeletal: Yes (LEFT HAND SURGICAL REPAIR OF LACERATION) Endocrine: No HEENT: No Cancer: No Psychosocial: Yes Anxiety, Bipolar, Depression Integumentary: No Blood Disorders: No Family Medical History Colon cancer Heart Disease, Hypertension, Stroke Physical Exam Vital Signs Capillary Refill : Height, Weight, BMI Height: 5'7.00" Weight: 138lbs. oz. 62.796560nw; 26.70 BMI Method:Stated General Appearance: No Apparent Distress, WD/WN Eyes: Bilateral Eye Normal Inspection, Bilateral Eye PERRL, Bilateral Eye EOMI HEENT: PERRL/EOMI, TMs Normal, Normal ENT Inspection, Pharynx Normal Neck: Full Range of Motion, Normal Inspection, Non Tender, Supple Respiratory: Chest Non Tender, Normal Breath Sounds, No Accessory Muscle Use, No Respiratory Distress, Other (Free movable dime size lesion to the left lateral chest. Appears subcutaneous) Cardiovascular: Regular Rate, Rhythm, No Edema, No Gallop, No JVD, No Murmur Gastrointestinal: Normal Bowel Sounds, No Organomegaly, No Pulsatile Mass, Non Tender Back: Normal Inspection, No CVA Tenderness, No Vertebral Tenderness Extremity: Normal Capillary Refill, Normal Inspection, Normal Range of Motion, Non Tender, No Calf Tenderness Neurologic/Psychiatric: Alert, Oriented x3, No Motor/Sensory Deficits, Normal Mood/Affect, handkerchief folder [id number] Norm as Tested Skin: Other (Dime size single free movable nodule to left lateral chest. No surrounding redness or swelling. No purulent drainage or function mass) Progress/Results/Core Measures Suspected Sepsis SIRS Temperature: Pulse: Respiratory Rate: Blood Pressure / Mean: Results/Orders Vital Signs/I&O Capillary Refill : Departure Communication (PCP) Patient concerning for a lump to his left lateral chest. Reports some dull soreness to this area. Just noted the area yesterday. On exam Free movable nodule. No surrounding redness or swelling. No significant pain on palpation. Differential diagnosis lipoma versus sebaceous cyst. apears to be more of a lipoma. It appears subcutaneous. Discussed with patient that this can be followed up outpatient any with a general surgeon. If any worsening symptoms return back to ED for further evaluation. He has no other lesions. If increased size or pain may need removal and biopsy Impression Primary Impression: Nodule of skin of chest Disposition: HOME, SELF-CARE Condition: Stable Departure-Patient Inst. Decision time for Depature: 12:00 Referrals: JONES KRUSE DAVID F MD (PCP/Family) Primary Care Physician Patient Instructions: Lipoma Add. Discharge Instructions: Follow-up for general surgery for further evaluation All discharge instructions reviewed with patient and/or family. Voiced understanding. SARAI CORTÉS October 16, 2022 12:01
== END 2022-10-16 12:07 | disposition home or self-care (01) ==
LOC: EDUNIT# 11:28 → ER 11:30
DX: R22.2 Localized swelling, mass and lump, trunk (principal); F17.210 Nicotine dependence, cigarettes, uncomplicated
CPT/HCPCS: 99281

== ENCOUNTER → 2022-12-13 | Outpatient (CLI) | payer MEDICARE, MEDICAID ==
[~2022-12-13] VITALS: Ht 170 cm; Wt 71.0 kg
[~2022-12-13] MED LIST changes: +CATHETER FLUSH 10 ML SYR IVP PRN; +REGADENOSON 0.4 MG/5 ML SYR (LEXISCAN) IV ONE
[2022-12-13 09:23] VITALS: BP 121/67
--- NOTE | 2022-12-13 21:27 | STRESS TEST ---
DATE OF SERVICE: 12/13/2022 RESTING AND POST REGADENOSON TECHNETIUM-99M TETROFOSMIN SPECT CT IMAGING ORDERING PHYSICIAN: Dr. Mi. PRIMARY PHYSICIAN: [facility]. CLINICAL DIAGNOSIS: Chest discomfort. Baseline images were carried out after injection of 10.99 mCi of technetium-99m tetrofosmin. This was followed by 0.4 mg regadenoson and 29.8 mCi of technetium-99m tetrofosmin for stress imaging. The electrocardiogram showed sinus rhythm at baseline. It did not change significantly with the regadenoson infusion. The patient tolerated the procedure well. Review of images at rest and following stress does not indicate any significant perfusion defects consistent with myocardial ischemia or infarction. Gated images show normal global left ventricular systolic function with normal regional wall motion. Left ventricular ejection fraction is calculated to be 57%. CONCLUSIONS: 1. No evidence of any significant myocardial ischemia or infarction on this study. 2. Normal regional wall motion. 3. Normal global left ventricular systolic function with a calculated ejection fraction of 57%. Job ID: [id number] DocumentID: [id number] Dictated Date: 12/13/2022 18:02:11 Clean Room Assembler Date: 12/13/2022 21:25:00 Dictated By: RICARDO MI MD; MELVIN; FACP; FACC;
== END ==
LOC: CARD 07:57
PROVIDERS: ATTEND Internal Medicine Cardiovascular Disease
DX: R07.89 Other chest pain (principal)
CPT/HCPCS: 78452; 93017; A9502